=== PATIENT | male | born 1965 | race Caucasian/White ===

== ENCOUNTER 2023-11-23 11:44 | Inpatient (IN) | payer BC, SELFPAY ==
[2023-11-19 19:20] VITALS: BP 145/90; BP 148/89
--- NOTE | 2023-11-19 19:55 | ED.GENMED ---
History of Present Illness
General
Chief Complaint: Back Pain
Source: patient
Time Seen by Provider: 11/19/23 19:56
History of Present Illness
History of Present Illness:
58-year-old male presents to the emergency room complaining of pain in his back. Patient has chronic back pain. He has been sleeping in a chair for the past 2 years due to back pain. Over the past couple weeks the pain seems to be higher and is
now bothering him in the lower thoracic portion of his back. No shortness of breath. Pain is worse with movement and by exhaling. He denies specific abdominal pain. He has no weakness numbness or tingling in his legs. Patient was evaluated by
his primary care provider who was concerned that he may be having complications from his known AAA. Therefore he was sent to the emergency room for further evaluation.
Past History
Past History
ED Past Medical History: CAD, HTN, Hypercholesterolemia and Other (AAA)
ED Past Surgical History: Cardiac (CABG 2006)
Social History
Tobacco: Former smoker
Alcohol: None
Drug: None
Personal:
Living: with family
Employment: Employed
Family History
Family History: Early CAD
Phy Exam
Physical Exam
Physical Exam:
General: Awake, Alert, Oriented X3. No acute distress.
Vitals: unremarkable
Head: Atraumatic
Eyes: Pupils equal, EOMI
Throat: Airway intact, no exudates
Neck: Trachea midline
Lungs: Clear and equal b/l
Heart: Regular rate, no murmurs
Abd: Soft, Nontender, No pulsatile mass
Neuro: Nonfocal
Skin: Warm, dry, no rash
Extremities: pulses equal b/l, no edema
Course
Orders/Labs/Results
Orders:
Orders
11/19/23 19:54
CT Abd/pelvis W Iv Cont Urgent
Comment:
Reason For Exam: back pain, hx of AAA
11/19/23 20:04
Complete Blood Count/With Diff Urgent
Comprehensive Metabolic Panel Urgent
Lipase Urgent
Abnormal Lab Results
11/19/23
20:04
MCH 31.6 H pg
(27.0-31.0)
Absolute Monos (auto) 0.8 H 10^3/uL
(0.1-0.6)
Monocytes % 11.0 H %
(1.7-9.3)
11/19/23 20:04
11/19/23 20:04
Vital Signs
Initial and Last Documented VS:
Initial Vital Signs
Temp Pulse Resp BP Pulse Ox
99.1 F 69 18 148/89 95
11/19/23 19:20 11/19/23 19:20 11/19/23 19:20 11/19/23 19:20 11/19/23 19:20
Last Documented Vital Signs
Temp Pulse Resp BP Pulse Ox
99.1 F 66 19 139/85 94
11/19/23 19:20 11/19/23 22:30 11/19/23 22:30 11/19/23 22:00 11/19/23 22:30
MDM/Problems Addressed
Differential Diagnosis Includes:
Musculoskeletal pain, expanding AAA, kidney stone
MDM/Problems Addressed:
Patient presents with lower thoracic back pain that is getting worse. CT scan shows significant expansion of infrarenal abdominal aortic aneurysm. Discussed with vascular surgery who recommends patient be hospitalized for workup and potential
repair this admission.
*Radiology
Radiology exam reviewed: radiology read reviewed
*Pulse Oximetry
Patient hypoxic: no
*Critical Care Note
Total Time (30-74mins, 75-104mins- exclusive of procedures): Not Applicable
ED Attending Note
-
Portions of this chart may have been created with voice recognition software.� Occasional wrong word or��sound alike� substitutions may have occurred due to the inherent limitations of voice recognition software.
Discharge Plan
Departure
Patient Disposition: Admit
Date of Disposition: 11/19/23
Time of Disposition: 22:57
Admit to: IMU
Presentation/result/management discussed w/ accepting MD/DO: Hospitalist
Condition: Fair
Discharge Problem:
Abdominal aortic aneurysm
Prescriptions:
No Action
atenolol 25 MG tablet
50 mg PO DAILY
pravastatin 80 MG tablet
80 mg PO DAILY
diltiazem HCl 120 MG capsule,extended release 24hr
120 mg PO DAILY
isosorbide mononitrate 30 MG tablet extended release 24 hr
30 mg PO DAILY Qty: 30 5RF
prochlorperazine maleate 10 mg Capsule, Extended Release
10 mg PO DAILY PRN (Reason: Headache)
nitroglycerin 0.3 mg Tablet, Sublingual
0.3 mg SUBLINGUAL Q5-15M PRN (Reason: chest pressure)
topiramate 25 mg Tablet
25 mg PO DAILY
clopidogrel [Plavix] 75 mg Tablet
75 mg PO DAILY
Referrals:
Julius Sotelo MD [Family Provider] -
Interventions
Interventions:
*Risk Screen - Suicide Last Done: 11/19/23 19:16
*General Assessment Last Done: 11/19/23 19:16
*Neglect/Abuse Screening Last Done: 11/19/23 19:16
*ED COVID-19 Vaccine History Last Done: 11/19/23 19:16
ED-Musculoskeletal Assessment Last Done: 11/19/23 20:15
Discharge Date and Time
Print Language: FAROESE
[2023-11-19 20:06] VITALS: BP 133/82
[2023-11-19 20:10] LABS: % Basophils 0.3 % (0-2); % Eosinophils 1.9 % (0-6); % Immature Granulocytes 0.4 % (0-0.5); % Lymphocytes 25.1 % (20.5-51.1); % Neutrophils 61.3 % (42.2-75.2); Absolute Eosinophils 0.1 10^3/uL (0-0.7); Absolute Lymphocytes 1.8 10^3/uL (1.2-3.4); Absolute Monocytes 0.8 10^3/uL (0.1-0.6); Absolute Neutrophils 4.4 10^3/uL (1.4-6.5); Hematocrit 41.5 % (39.0-52.0); Hemoglobin 14.9 g/dL (13.0-18.0); Mean Corp Hgb Conc. 35.9 g/dL (33.0-37.0); Mean Corpuscular Hgb 31.6 pg (27.0-31.0); Mean Corpuscular Volume 88.1 fL (80.0-94.0); Mean Platelet Volume 9.6 fL (7.4-10.4); Nucleated Red Blood Cells % 0 % (-); Platelet Count 150 10^3/uL (130-400); Red Blood Cell Count 4.71 10^6/uL (4.70-6.10); White Blood Cell Count 7.3 10^3/uL (4.8-10.8)
[2023-11-19 20:37] LABS: ALT (SGPT) 23 U/L (0-50); AST (SGOT) 31 U/L (17-59); Albumin 4.1 g/dl (3.5-5.0); Alkaline Phosphatase 78 U/L (38-126); Blood Urea Nitrogen 18 mg/dl (9-20); Carbon Dioxide 26 mmol/L (22-30); Glucose 98 mg/dl (70-99); Lipase 222 U/L (23-300); Total Bilirubin 0.9 mg/dl (0.2-1.3); Total Protein 6.8 g/dl (6.3-8.2); eGFR > 60.00
[2023-11-19 20:41] LABS: Chloride 105 mmol/L (98-107); Potassium 4.5 mmol/L (3.5-5.1); Sodium 142 mmol/L (135-145)
[2023-11-19 21:00] VITALS: BP 136/89
[2023-11-19 22:00] VITALS: BP 139/85
[2023-11-19 23:00] VITALS: BP 146/94
--- NOTE | 2023-11-19 23:30 | HPS.HSE ---
Family Physician
-
Family Physician: Julius Sotelo
Chief Complaint
-
Worsening mid back pain
History of Present Illness
This is a 58-year-old male with past medical history significant for CAD, CVA, hypertension, and known AAA who presents to the emergency department with chronic back pain that is worsening over the last 2 months.
Patient reports chronic back pain for several years requiring multiple steroid injections in the past. He reports that that back pain is in the lumbosacral area and associated with flexion of the spine as well as radicular symptoms down the legs.
However over the last 2 months he has noticed the pain is more superior in the thoracic region and is covering a broader area associated with a achy sensation that sometimes radiates to the left flank. He denies intra-abdominal symptom such as
nausea or vomiting. He denies constipation. He denies any urinary symptoms including hematuria, dysuria incontinence or frequency. He reports that twisting motion of the spine makes the pain worse. He also reports chronic back pain with spasms
which is worse when he lays down. He denies any numbness tingling or weakness.
Patient reports that in the past he has had headaches that were associated with subsequent CVA. He reports occasional headache now. He was seen by his PMD who noted that with a headache back pain she was seen in the emergency department. He is
currently without any headaches.
In the emergency department the patient was afebrile over 94 pulse was in the patient saturation of 97% on room air abdomen pelvis which showed an enlarging AAA that was 4.7 cm, up from 3.4 cm in 2020, otherwise no acute intra-abdominal process.
CBC was complete within normal limits. Basic electrolytes BUN/creatinine also within normal limits. Lipase was normal. LFTs were normal.
Medical History
Past Medical History
Past Medical History: Reports CAD, CVA and HTN
Additional Past Medical History:
Chronic back pain
Past Surgical History: Reports None
Social History
Tobacco: Non-smoker
Alcohol: None
Drug: None
Personal:
Living: With Family
Employment: Employed
Family History
Family History: Not pertinent
Allergies / Home Medications
Allergies reflects when Allergies were last updated in [facility].
Home Medications with original date entered in [facility]
Allergy/Medication List:
Allergies
Allergy/AdvReac Type Severity Reaction Status Date / Time
No Known Allergies Allergy Verified 09/22/22 11:27
Home Medications
pravastatin 80 mg tablet 80 mg PO DAILY High cholesterol 08/20/13
diltiazem HCl 120 mg capsule,extended release 24 hr 120 mg PO DAILY Heart disease/condition 11/29/19
isosorbide mononitrate 30 mg tablet,extended release 24 hr 30 mg PO DAILY #30 tabs 09/12/20
clopidogrel 75 mg tablet (Plavix) 75 mg PO DAILY 09/22/22
nitroglycerin 0.3 mg sublingual tablet 0.3 mg sublingual [id number] PRN chest pressure 09/22/22
ashwagandha extract 500 mg capsule 1,000 mg PO DAILY 11/19/23
atenolol 50 mg tablet 50 mg PO DAILY 11/19/23
Review of Systems
-
History Source: Patient
Constitutional: Reports No Symptoms
EENT: Reports No Symptoms
Respiratory: Reports No Symptoms
Cardiac: Reports No Symptoms
Abdomen/GI: Reports No Symptoms
: Reports No Symptoms
Musculoskeletal: Reports Muscle Pain
Skin: Reports No Symptoms
Neurological: Reports No Symptoms
Endocrine: Reports No Symptoms
Hematologic/Lymphatic: Reports No Symptoms
Psych: Reports No Symptoms
Physical Exam
Vital Signs
Vital Signs
Temp Pulse Resp BP Pulse Ox
99.1 F 62 23 146/94 95
11/19/23 19:20 11/19/23 23:15 11/19/23 23:15 11/19/23 23:00 11/19/23 23:15
Physical Exam
General: Well Developed, Well Nourished, No Apparent Distress and Comfortable
HEENT: NormoCephalic, Anicteric, Moist mucous membranes and Atraumatic
Respiratory: Clear
Cardiac: S1/S2 and Regular Rhythm
GI: Soft, Non Tender, Non Distended and Normal Bowel Sounds
Rectal: Deferred by Provider
Genito-urinary: Deferred by me
Musculoskeletal: No Clubbing, No Cyanosis and No Edema
Skin: Warm
Neuro: AO x 3
Hematologic/Lymphatic: No Lymphadenopathy
Psych: Calm
Laboratory Results
-
11/19/23 20:04
11/19/23 20:04
Laboratory Results
Total Bilirubin 0.9 mg/dl (0.2-1.3) 11/19/23 20:04
AST 31 U/L (17-59) 11/19/23 20:04
ALT 23 U/L (0-50) 11/19/23 20:04
Alkaline Phosphatase 78 U/L (38-126) 11/19/23 20:04
Lipase 222 U/L (23-300) 11/19/23 20:04
Data Reviewed
-
CT Scan: Report Reviewed by me
Lab Data: Labs Reviewed by me
Old Records: Reviewed
Impression/Plan
-
IMPRESSION:
PLAN:
Triple AAA - Patient with enlarging AAA 3.4 cm to 4.7 cm since 2020 an average of 0.21 / 6 months but unclear the actual trajectory. There is no evidence of rupture or compression. BP is stable. Pain is however different from his usual back pain.
Vascular surgery notified and wants to evaluate patient in am.
- admit to telemetry
- npo
- hold plavix
- continue statin, imdur and atenolol for now.
- analgesics
Chronic BP - Patient with pain associated with spasms in a chronic manner.
- toradol once
- flexeril prn
- benadryl once
CVA/cad -
- holding plavix continue aspirin
- continue imdur, atenolol and dilt
DVT PPX - lovenox sq
Code Status -Full Code
[2023-11-19] MEDS: FLEXERIL 10 MG PO (23:58)
[2023-11-19] MEDS: TORADOL 10 MG IV (23:58)
[2023-11-20] VITALS (8 sets, daily range): BP systolic 128–168; BP diastolic 71–100; BMI 39.9
--- NOTE | 2023-11-20 04:52 | PTCARENOTE ---
0041 patient admitted to 2119, placed on tele #20, admission assessment completed. pt Ox3, states pain in back is anywhere from a 3-09/15. pt denies need for any mediciations. Oriented to room and inst production control supervisor ANN-MARIE georges reviewed. pt verb.
understanding.
--- NOTE | 2023-11-20 08:00 | CON.VAS ---
Consultation
Consultation Request
Date/Time Consultation Performed: 11/20/2023 8am
Requesting Provider: Hospialist
Performing Provider: Sujata Umanzor for Nba Polanco MD
Reason for Consultation: AAA
Medical History
-
Chief Complaint: Back pain/ headache
History of Present Illness:
This is a 58-year-old male with history of abdominal aortic aneurysm, stroke, hypertension, CAD, and migraine known to be smaller aneurysm followed. He presents to the ER yesterday reporting roughly 2 months of ongoing upper musculoskeletal
described back pain with accompanying intermittent severe headache. Patient notes that he has chronic lower back pain, and this upper back pain located around bilateral shoulder blades differs from previous pain. However, what was most concerning
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 'He endorses a prior history of strokes, and with his past strokes he experienced severe headaches which caused alarm for him
prompting ED evaluation. CT scan imaging of the abdomen last night in the emergency room demonstrated growth of his abdominal aortic aneurysm. Patient notes pain in his back which he points to the mid to lower thoracic back at the inferior margin
of the scapula as and radiating around somewhat to the right side he thinks. It is a constant pain. However certain things seem to make it worse. Not severe, more dull achy. He additionally endorses a strong family history of coronary artery
disease with majority of men dying in their early 50s to 60s from heart attacks. He is not aware of a family history of AAA or rupturing AAA as cause of .
Past Medical History
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
Past Surgical History: Cardiac (cardiac catheterization, CABG x3) and Urological ( lithotripsy)
Social History
Tobacco: Former Smoker (Quit 27 years ago)
Personal:
Living: With Family
Employment: Employed
Family History
Family History: Early CAD
Allergies / Home Medications
Allergy/AdvReac Type Severity Reaction Status Date / Time
No Known Allergies Allergy Verified 09/22/22 11:27
�Medication �Instructions �Recorded �Confirmed �Type
pravastatin 80 mg tablet 80 mg PO DAILY High cholesterol 08/20/13 11/19/23 History
diltiazem HCl 120 mg 120 mg PO DAILY Heart 11/29/19 11/19/23 History
capsule,extended release 24 hr disease/condition
isosorbide mononitrate 30 mg 30 mg PO DAILY #30 tabs 09/12/20 11/19/23 Rx
tablet,extended release 24 hr
clopidogrel 75 mg tablet (Plavix) 75 mg PO DAILY Blood Clot 09/22/22 11/19/23 History
Prevention/Tx
nitroglycerin 0.3 mg sublingual 0.3 mg sublingual [id number] PRN 09/22/22 11/19/23 History
tablet chest pressure
ashwagandha extract 500 mg capsule 1,000 mg PO DAILY Supplement 11/19/23 11/19/23 History
atenolol 50 mg tablet 50 mg PO DAILY Blood Pressure 11/19/23 11/19/23 History
Review of Systems
-
History Source: Patient
Constitutional: Reports No Symptoms
EENT: Reports Other (headache)
Respiratory: Reports No Symptoms
Cardiac: Reports No Symptoms
Vascular: Denies Leg Pain / Claudication, Numbness or Tingling
Abdomen/GI: Reports No Symptoms
: Reports No Symptoms
Musculoskeletal: Reports Other (upper back pain)
Skin: Reports No Symptoms
Neurological: Reports Headache
Endocrine: Reports No Symptoms
Physical Exam
Vital Signs
Temp Pulse Resp BP Pulse Ox
98.3 F 56 19 128/83 96
11/20/23 11:45 11/20/23 11:45 11/20/23 11:45 11/20/23 11:45 11/20/23 11:45
Lab Results
11/19/23 20:04
11/19/23 20:04
Physical Exam
General: No Apparent Distress
HEENT: Normocephalic, Anicteric and Atraumatic
Respiratory: Non Labored Respirations
Cardiac: Negative JVD
GI: Soft, Non Distended and Other (to deep palpation can palpate the aortic pulsation and he does elicit some tenderness here)
Musculoskeletal: No Edema
Skin: Warm
Neuro: AO x 3
Pulses: Bilateral Femoral: +2, Bilateral Popliteal: +1, Bilateral Dorsalis Pedis: +2 and Right Dorsalis Pedis: +2
Assessment / Plan
-
Assessment: 58 year old male symptomatic infrarenal abdominal aortic aneurysm
Plan:
Recommend repair while inpatient [facility]
Preop cardiac clearance
Recommend neurology consult given reports of severe headaches, with a history of stroke
Will obtain CT angio of the chest/abdomen/pelvis for complete imaging and to rule out thoracic aortic aneurysm, will obtain this tomorrow given recent CAT scan with dye
Additionally will obtain arterial ultrasound of bilateral lower extremities to rule out popliteal artery aneurysm
Reviewed with on-call vascular surgeon
--- NOTE | 2023-11-20 09:03 | W.PN.UPDATE ---
Update Note
Progress Note Update
Seen and evaluated with BALDO Umanzor. Full consultation to follow. Briefly 58-year-old male with history of abdominal aortic aneurysm, known to be smaller aneurysm followed. Strong family history of coronary artery disease with early MIs/mortality's
in his family (males in his family especially). Patient personally also had CABG prior. Subsequently underwent coronary catheterization a few years ago and notes that it was a complex intervention that resulted in inability to stent and patient
had cardiac arrest as a complication. Now he presents with about a month of back pain. It progressed to the point where he has a constant headache now and in the past he has had headaches when he had strokes. This raise concern and he presented
to the emergency room yesterday. CT scan imaging of the abdomen last night in the emergency room demonstrated growth of his abdominal aortic aneurysm. Patient notes pain in his back which he points to the mid to lower thoracic back at the inferior
margin of the scapula as and radiating around somewhat to the right side he thinks. It is a constant pain. However certain things seem to make it worse. Not severe, more dull achy.
In addition to above cardiovascular risk factors, he does note a history of tobacco use a pack a day at most, but quit 20 years ago plus.
On exam/ He is awake and alert. Head is normocephalic and atraumatic. Eyes are anicteric. Neck is soft without jugular venous distention. Breathing is unlabored. Abdomen is soft, nondistended, mildly obese. To deep palpation I can palpate the
aortic pulsation and he does elicit some tenderness there. He does seem to indicate that that discomfort/tenderness also may be mimicking his back pain. Not severely tender. Lower extremity with 2+ femoral, popliteal, pedal pulses palpable
bilaterally. Popliteal pulses may be slightly full.
CT scan reviewed. He has somewhat of a bilobed abdominal aortic aneurysm with the more inferior lobe (larger lobe) measuring 4.6 cm in the transverse dimension and about 4.7 cm in the AP dimension. There is a moderate posterior to anterior
migration of the aorta in the infrarenal segment. There is however a suitable diameter neck infrarenally for sealing of the stent graft. He does have a mild right common iliac artery ectasia/aneurysm measuring 2 cm. His aorta has moderate mural
thrombus as does his common iliac on the right side. Note I compared to an dated 10/11/2020 CAT scan from which time the aorta demonstrates significant growth. On that scan the more proximal lobe was barely enlarged at about 2.5 cm. The distal
lobe that is currently grown measured at that time 3.0 cm in transverse dimension and 3.4 cm in AP dimension. Therefore significant growth noted.
Plan/ Symptomatic infrarenal abdominal aortic aneurysm. Discussed with patient recommendation that despite absolute size less than 5.5 cm, this has demonstrated significant growth, albeit over a 3-year period, but more concerning only he may be
symptomatic here. He has constant back pain. And when I push on the aortic aneurysm it elicits discomfort/tenderness and that may radiate to his back and duplicate his pain. Based on all this while there is a chance his back pain could be other
in nature, would favor repair of the aneurysm as he certainly could be symptomatic which would increase his risk of rupture. I discussed this all with him. I discussed with his who is at the bedside as well. I had a very extensive discussion
with them, and naida diagrams to facilitate their understanding of aortic anatomy and mentations for repair. I extensively discussed with them the options for repair. I discussed open surgery that generally I favor an a younger patient especially
in the setting of slightly tortuous aortic anatomy. However, given his coronary history, and suitability for stent grafting I generally would favor in him endovascular repair. I did discuss both options at length. Discussed procedural anticipated
outcomes and recovery times, and discussed procedural risks for both comparatively. This was all extensively discussed. I discussed risks of endovascular repair including but not limited to (less than 1%), bleeding, infections,
contrast-induced nephropathy and/or inadvertent renal artery coverage resulting in dialysis dependent renal failure, bowel ischemia, pelvic and/or lower extremity ischemia, need for repeated reintervention's over the long-term or short-term,
endoleaks and their management. He and his understand all and wish to proceed with endovascular repair of abdominal aortic aneurysm. Given his significant cardiac history, I would recommend cardiology evaluation preoperatively. Given his
headaches and history of strokes, would recommend neurology preoperative evaluation. In addition, given his pain in the back that is slightly higher up and given his history, would recommend CT scan imaging of his chest as well to rule out aneurysm
there (would favor waiting 24 hours between contrast loads). And would recommend baseline popliteal artery ultrasounds to rule out popliteal artery aneurysms. Will get all this done and plan expeditious surgery ([facility]) on Thursday (11/23/2023, 3 days
from now). If any increasing pain will plan more urgent surgery.
[2023-11-20] MEDS: IMDUR (EXTENDED RELEASE) 30 MG PO (09:23)
[2023-11-20] MEDS: CARDIZEM CD 120 MG PO (09:23)
[2023-11-20] MEDS: TENORMIN 50 MG PO (09:23)
[2023-11-20] MEDS: PRAVACHOL 80 MG PO (09:24)
--- NOTE | 2023-11-20 10:58 | CON.NEURO4 ---
Addendum entered and electronically signed by Alex Heredia MD 11/20/23 14:35:
Studies reviewed.
I have personally examined the patient. I reviewed and agree with the UTILITY INSPECTOR's Note.
My addenda:
Awake, alert, interactive. No acute distress.
Speech intact.
Follows 2-step requests w/o difficulty. No tremor.
Extra-ocular movements grossly intact.
Facial movements full and symmetric. Hearing intact to normal conversational volume.
Normal UE movements bilaterally.
Neck: full ROM.
Chest: no dyspnea
Heart: no JVD
Ext: (-) Clubbing, (-) Cyanosis, (-) Edema
IMPRESSIONS/RECOMMENDATIONS:
Abrupt onset of return of daily persistent headache
Etiology may include worsening quality of sleep due to recurrent low back pain which in turn may be due to abdominal aortic aneurysm as well as hypertension
Would attempt to improve blood pressure control with the use of advancing doses of atenolol if possible. From standpoint of migraine, would prefer use of propranolol if at all possible to change
Would provide prochlorperazine for headache rescue when necessary
No clear indication patient would benefit from repeated neuroimaging as examination is nonfocal at this time. Would repeat if there is significant worsening in neurological function or persistent headaches despite best therapies
Continue pravastatin 80 mg daily due to intracranial stenosis
Continue clopidogrel due to prior stroke
D/W patient / family / nursing
All questions answered.
Will continue to follow peripherally.
Original Note:
Documented by User: Yasmeen Cohen NP 11/20/23 13:53
Consultation - Neurology 4
-
CONSULTING PHYSICIAN: Alex Heredia MD
REFERRING PHYSICIAN: Vascular Surgery/LATOSHA Meraz
DICTATED BY: LAOTSHA Garcia
DATE/TIME OF REQUEST: 11/20/23
DATE/TIME OF CONSULTATION: 11/20/23
Reason for Consultation: Intractable Headache
History of Present Illness:
This is a 58-year-old male who has presented to the hospital with report of intractable back pain. Patient is followed by our Neurology service as an outpatient. Initially he began following with our office for report of migraine headaches with
vision loss. CTA head/neck was subsequently obtained on 07/06/21 and demonstrated L cavernous ICA 50-69% stenosis, R ICA 25-50% stenosis, and severe R IDENTIFICATION TECHNICIAN P1 hypoplasia. MRI brain completed on 09/23/21 demonstrated a small subacute lacunar infarct in
the right centrum semiovale. Patient was continued on aspirin 81mg daily at that time. He then presented to [facility] in July 2021 with report of dysarthria, left hemiparesis, and visual changes. CTA head/neck demonstrated diminished R
MCA flow and he received IV TNK. MRI brain obtained during that hospitalization demonstrated small subacute infarct in the R MCA territory/R caudate. He was changed from aspirin to Plavix 75mg daily at that time. ILR was placed following that event
and recordings have thus far been unremarkable. Patient reports that his headache frequency improved following his second stroke until September 2023. He then reports sometime in September 2023 he started having severe thoracic back pain, different from his
chronic back pain. Shortly after he started having back pain he reports that neck and headaches began. The more severe his back pain, the more severe his headaches seemed to be. He was started on prochlorperazine PRN headache which he reports worked
well, but he ran out of pills and didn't call for a refill. He was also given a script for blood work but has yet to complete this. He has been on Nurtec in the past with no relief of headache, in addition to topiramate as a headache prevention
medication but he stopped taking this due to ongoing memory issues since his stroke. About one month ago, his headache became daily. They typically last for a few hours and are somewhat relieved by OTC Tylenol or Advil. His usual headache intensity
is 9/10. Today, his headache is a 4-5/10. He reports mild photo/phonophobia today, which is typical of his headaches. Occasionally he has nausea and cannot eat when he has a headache but denies vomiting. He denies any recent vision changes,
dizziness, swallowing difficulty, numbness, weakness, chest pain, palpitations, and shortness of breath. He reports ongoing severe short term memory difficulty and word finding difficulty. He has CADENCE and is compliant with cpap usage but he reports
severe difficultly sleeping since his back pain started due to discomfort. On arrival at , workup has revealed significant growth in his known AAA and neurology is consulted for headache evaluation given his history of stroke prior to EVAR on
11/23/23.
Past Medical History: R centrum semiovale and R MCA territory ischemic strokes, migraine with aura, HTN, HLD, AAA, CAD, renal calculi, cardiac cath complicated by cardiac arrest, L cavernous 50-69% ICA stenosis
Surgical History: lithotripsy, ILR, 3V CABG, cardiac cath
Family History: Mother- MS and severe headaches.
Social History: Former smoker.
Allergies: No known allergies.
Home Medications: See below.
Review of Symptoms:
Patient denies any fever, headache, chest pain, shortness of breath, GI or symptoms.
�Per the HPI.�All systems are reviewed negative except above.
Physical Exam:
The patient is afebrile, abdomen is nondistended, breathing is unlabored, skin is warm and dry, no edema.
NIH Stroke Scale:
I performed the NIH stroke scale on the patient on 11/20/23 at 1100. The patient scored 0 points on the NIH stroke scale assessment, which were assigned as follows: See below.
Neurologic Examination:
The patient is awake, alert and oriented x 3. He is able to follow commands and answer questions appropriately. There is no aphasia or dysarthria. On cranial nerve assessment, pupils are 3 mm bilateral, round and reactive to light and
accommodation. Visual valentino are full. Extraocular movements are intact. Facial sensations are intact and bilaterally symmetrical, there is no facial asymmetry. Hearing is intact bilaterally to normal conversation volume. Tongue palate and uvula are
midline. Sternocleidomastoid strengths are full bilaterally. Motor strengths are 5/5 bilateral upper and lower extremities on medical research [place] scale. There is no drift or involuntary movement noted. Deep tendon reflexes are 1+ bilateral
upper and lower extremities and Babinski is absent bilaterally. There was no extinction noted on double simultaneous stimulation. Coordination is intact by finger to nose bilaterally.
Lab Results: See below.
Neuro Imaging: None.
Differentials for the patient's presentation include:
1. Intractable migraine; etiology possibly hypertension, poor sleep.
2. Neurological exam is unremarkable, no exam findings supportive of new/recent stroke.
3. Hx of recurrent ischemic stroke.
4. Known L cavernous ICA 50-79% stenosis.
Patient has the following risk factors for their symptoms: hx stroke, hx migraines, poor sleep, hypertension
Recommendations:
-Continue single antiplatelet therapy as soon as possible per Vascular Surgery clearance for stroke prevention.
-Do not see a role for further neurological imaging at this time.
-Provide prochlorperazine 10mg IV x1 now for headache relief, can continue this q6hrs PRN headache.
-Goal normotension.
-DVT prophylaxis.
-Please contact our Neurology service with any further questions/concerns.
Discussed patient care with: Dr. Heredia, the patient, patient's
Vital Signs and Labs
-
Vital Signs and Labs:
Vital Signs
Temp Pulse Resp BP Pulse Ox
98.3 F 56 19 128/83 96
11/20/23 11:45 11/20/23 11:45 11/20/23 11:45 11/20/23 11:45 11/20/23 11:45
Lab Results
11/19/23 20:04
11/19/23 20:04
Sodium 142 mmol/L (135-145) 11/19/23 20:04
Potassium 4.5 mmol/L (3.5-5.1) 11/19/23 20:04
BUN 18 mg/dl (9-20) 11/19/23 20:04
Glucose 98 mg/dl (70-99) 11/19/23 20:04
Calcium 9.0 mg/dl (8.4-10.2) 11/19/23 20:04
Medications
-
Active Medications
Generic Name Dose Route Start Last Admin
Trade Name Freq PRN Reason Stop Dose Admin
Acetaminophen 650 mg 11/20/23 00:41
Acetaminophen 325 Mg Tablet PO 12/18/23 00:40
Q4HPRN PRN
mild pain/SANDOVAL/temp> 100.4F
Al Hydrox/Mg Hydrox/Simethicone 30 ml 11/20/23 00:41
Mag/Al/Simethicone Suspension 30 Ml Cup PO 12/18/23 00:40
Q6HPRN PRN
Heartburn
Atenolol 50 mg 11/20/23 08:00 11/20/23 09:23
Atenolol 50 Mg Tablet PO 12/18/23 07:59 50 mg
DAILY DENNIS Administration
Bisacodyl 10 mg 11/20/23 00:41
Bisacodyl 10 Mg Rectal Suppository RECTAL 12/18/23 00:40
[id number] PRN
constipation
Diltiazem HCl 120 mg 11/20/23 08:00 11/20/23 09:23
Diltiazem 120 Mg Extended Release (24 H) Capsule PO 12/18/23 07:59 120 mg
DAILY DENNIS Administration
Enoxaparin Sodium 40 mg 11/20/23 18:00
Enoxaparin Sodium 40 Mg/0.4 Ml Syringe SC 12/18/23 17:59
QPM DENNIS
Isosorbide Mononitrate 30 mg 11/20/23 08:00 11/20/23 09:23
Isosorbide Mononitrate 30 Mg Extended Release Tablet PO 12/18/23 07:59 30 mg
DAILY DENNIS Administration
Lidocaine 1 patch 11/20/23 11:15 11/20/23 12:13
Lidocaine 4% Topical Patch TOPICAL 12/18/23 11:14 1 patch
DAILY DENNIS Administration
Protocol
Patch Removal 0 patch 11/20/23 20:00
Remove Lidocaine Patch REMOVE 12/18/23 19:59
DAILY@2000 DENNIS
Polyethylene Glycol 17 grams 11/20/23 00:41
Polyethylene Glycol Powder 17 Grams Packet PO 12/18/23 00:40
DAILYPRN PRN
constipation
Pravastatin Sodium 80 mg 11/20/23 08:00 11/20/23 09:24
Pravastatin 40 Mg Tablet PO 12/18/23 07:59 80 mg
DAILY DENNIS Administration
Prochlorperazine Maleate 10 mg 11/20/23 11:15
Prochlorperazine 10 Mg Tablet PO 12/18/23 11:14
Q6HPRN PRN
headache
Senna/Docusate Sodium 1 tablet 11/20/23 00:41
Docusate W/Senna (Sahra-Colace) Tablet PO 12/18/23 00:40
BIDPRN PRN
constipation
Sodium Chloride 0 flush 11/19/23 23:00
Sodium Chloride 0.9% (Flush) Syringe IV 12/17/23 22:59
PER PROTOCOL DENNIS
Home Medications
�Medication �Instructions �Recorded
pravastatin 80 mg tablet 80 mg PO DAILY High cholesterol 08/20/13
diltiazem HCl 120 mg 120 mg PO DAILY Heart 11/29/19
capsule,extended release 24 hr disease/condition
isosorbide mononitrate 30 mg 30 mg PO DAILY #30 tabs 09/12/20
tablet,extended release 24 hr
clopidogrel 75 mg tablet (Plavix) 75 mg PO DAILY Blood Clot 09/22/22
Prevention/Tx
nitroglycerin 0.3 mg sublingual 0.3 mg sublingual [id number] PRN 09/22/22
tablet chest pressure
ashwagandha extract 500 mg capsule 1,000 mg PO DAILY Supplement 11/19/23
atenolol 50 mg tablet 50 mg PO DAILY Blood Pressure 11/19/23
NIH Stroke Score
Subsequent NIH Scale
Date of Subsequent NIH Scale: 11/20/23
Time of Subsequent NIH Scale: 11:00
NIH Stroke Score
Level of Consciousness: 0 - Alert
LOC Questions: 0-Answers both correctly
LOC Commands: 0-Performs both correctly
Best Horizontal Gaze: 0-Normal
Visual Valentino: 0=Normal, no visual loss
Facial Palsy: 0=Normal, symmetrical
Motor - Right Arm: 0=No drift 10 seconds
Motor - Left Arm: 0=No drift 10 seconds
Motor - Right Le-No drift 5 seconds
Motor - Left Le-No drift 5 seconds
Limb Ataxia: 0-Absent
Sensation: 0-Normal
Best Language: 0-No aphasia
Dysarthria: 0-Normal
Extinction and Inattention: 0-No abnormality
Total Score:: 0
Modified Mel[place] (mRS) Score
Modified [place] Scale (mRS): No symptoms
Score: 0

Documented by User: Alex Heredia MD 11/20/23 14:28
NIH Stroke Score
NIH Stroke Score
Total Score:: 0
Modified Janeen (mRS) Score
Score: 0
--- NOTE | 2023-11-20 12:04 | CON.CAR ---
Addendum entered and electronically signed by Feliciano Roy MD 11/20/23 15:42:
I saw and examined the patient.
The FAMILY DAY CARE WORKER's note was reviewed and I agree with the note.
Comment: 58 yo male with CAD s/p CABG x 3 2006, CVA 08/2022, obesity, HLD, HTN, migraines, infrarenal abdominal aortic aneurysm and strong family history of early CAD, who presents to the ER with c/o worsened back pain and headaches. CT abd/pelvis
revealed two sites of fusiform infrarenal abdominal aortic aneurysmal dilatation, measuring up to 4.7 cm (previously 3.4 cm on 10/11/2020) and fusiform aneurysmal dilatation of the bilateral common iliac arteries, increased from prior. He is without
any cp. 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 He has a rrr no m/r/g lungs cta no le edema. His ECG shows sb with primary av conduction delay with ns twave change no significant change from prior. He has elevated but
not prohibitive risk for the procedure. No futher testing needed. Will begin baby asa given his prior CVA and CAD. Continue BB.
We will follow peripherally, and return post op. Please call if repeat evaluation needed sooner.
Original Note:
Consultation
Consultation Request
Date/Time Consultation Requested: 11/20/23 10a
Date/Time Consultation Performed: 11/20/23 11:30a
Requesting Provider: LATOSHA Meraz
Performing Provider: LATOSHA Jarrell for Dr. Roy
Reason for Consultation: pre-op risk assessment
Medical History
-
Chief Complaint: back pain
History of Present Illness:
Mr. Paz is a 58 yo male with CAD s/p CABG x 3 2006, CVA 08/2022, obesity, HLD, HTN, migraines, infrarenal abdominal aortic aneurysm and strong family history of early CAD, who presents to the ER with c/o worsened back pain and headaches. CT
abd/pelvis revealed two sites of fusiform infrarenal abdominal aortic aneurysmal dilatation, measuring up to 4.7 cm (previously 3.4 cm on 10/11/2020) and fusiform aneurysmal dilatation of the bilateral common iliac arteries, increased from prior. He
is admitted to the hospitalist service with vascular surgery following for possible EVAR on Thursday11/23/23. We are consulted for pre-op risk assessment. He denies any cardiac complaints.
Past Medical History
Past Medical History: Other (as above)
Past Surgical History: Other (as above)
Social History
Tobacco: Former Smoker (quit 20 years ago)
Drug: None
Personal:
Living: With Family
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
Family History
Family History: Early CAD (father cad age 51)
Allergies / Home Medications
Allergy/AdvReac Type Severity Reaction Status Date / Time
No Known Allergies Allergy Verified 09/22/22 11:27
�Medication �Instructions �Recorded �Confirmed �Type
pravastatin 80 mg tablet 80 mg PO DAILY High cholesterol 08/20/13 11/19/23 History
diltiazem HCl 120 mg 120 mg PO DAILY Heart 11/29/19 11/19/23 History
capsule,extended release 24 hr disease/condition
isosorbide mononitrate 30 mg 30 mg PO DAILY #30 tabs 09/12/20 11/19/23 Rx
tablet,extended release 24 hr
clopidogrel 75 mg tablet (Plavix) 75 mg PO DAILY Blood Clot 09/22/22 11/19/23 History
Prevention/Tx
nitroglycerin 0.3 mg sublingual 0.3 mg sublingual [id number] PRN 09/22/22 11/19/23 History
tablet chest pressure
ashwagandha extract 500 mg capsule 1,000 mg PO DAILY Supplement 11/19/23 11/19/23 History
atenolol 50 mg tablet 50 mg PO DAILY Blood Pressure 11/19/23 11/19/23 History
Review of Systems
-
History Source: Patient
All other systems: Negative unless noted
Physical Exam
Vital Signs
Temp Pulse Resp BP Pulse Ox
98.3 F 56 19 128/83 96
11/20/23 11:45 11/20/23 11:45 11/20/23 11:45 11/20/23 11:45 11/20/23 11:45
Lab Results
11/19/23 20:04
11/19/23 20:04
Physical Exam
General: Well Developed, Well Nourished and No Apparent Distress
HEENT: Normocephalic, Anicteric and Moist Mucous Membranes
Respiratory: Clear and Non Labored Respirations
Cardiac: S1/S2 and Regular Rhythm
Breast: Deferred by me
GI: Soft, Non Tender, Non Distended and Normal Bowel Sounds
Rectal: Deferred by Provider
Genito-urinary: No Costovertebral Tender
Musculoskeletal: No Clubbing, No Cyanosis and No Edema
Skin: Warm and Dry
Neuro: AO x 3
Hematologic/Lymphatic: No Lymphadenopathy
Psych: Calm
Impression / Plan
-
Pre-op risk assessment - possible EVAR 11/23/23.
- he denies any cardiac complaints.
- he is able to perform > 4 METS without cardiac symptoms.
- no overt HF on exam, no angina.
- check EKG today.
- Plavix held, start ASA 81mg daily.
CAD - s/p CABG.
- denies angina.
- continue Pravastatin, Atenolol.
- Plavix held for surgery, add ASA 81mg daily.
HTN - stable on atenolol, diltiazem and Imdur, continue.
CVA - 08/2022.
- decreased flow to L MCA and received TNK with improved symptoms.
- has been on Plavix.
Headaches - worsened over the last 2 months.
- neurology following.
Back pain - acutely worse on chronic.
- maybe from aneurysm.
- per hosptialist.
Data Reviewed
-
EKG: Other (ordered EKG now)
CT Scan: Report Reviewed by me (abd/pelvis revealed two sites of fusiform infrarenal abdominal aortic aneurysmal dilatation, measuring up to 4.7 cm (previously 3.4 cm on 10/11/2020) and fusiform aneurysmal dilatation of the bilateral common iliac
arteries, increased from prior)
Medical Tests (Nuc Med, Echo etc): Report Reviewed by me (echo 10/2019: normal biventricular function, no significant valve disease) and Other (cath 09/2020: patent bypass grafts, unsuccessful attempt at PCI of first diagonal branch stenosis due to
guidewire dissection)
Labs: Labs Reviewed by me
Old Records: Reviewed
[2023-11-20] MEDS: COMPAZINE 10 MG IV (12:13)
[2023-11-20] MEDS: LIDOCAINE 4% PATCH 1 PATCH TOPICAL (12:13)
--- NOTE | 2023-11-20 12:21 | CM ---
Addendum entered by Ruth Larry RN 11/20/23 12:45:
Advance Directive forms provided to the patient.
Original Note:
Reviewed the chart notes and spoke with the patient and his family at the bedside. The patient is admitted under observational status. Obs letter reviewed and provided to the patient. The patient had no questions with regards to the letter.
The patient resides with his spouse, two daughters in a split level with no steps enter. The patient reports no DME/VN/SNF in the past. The patient confirmed his pharmacy of choice is [facility] [address] [place] [address]. CM continues to be
available to patient/family and is monitoring medical plan for needs at discharge.
Plan: Discharge plans will depend on the patient's progress.
--- NOTE | 2023-11-20 14:14 | W.PN.HOSP.TC ---
Today's Communication/Plan
-
CTChest with con
EVAR planned for thursday
Neuro and cards to clear
IV analgesics
Assessment / Plan
Assessment / Plan
NAD, resting comfortably in bed
Scleral anicteric
Moist mucous membranes
No JVD
CTA bilateral
Normal S1-S2 no murmurs
Soft nontender nondistended bowel sounds active
No peripheral pitting edema
Moves extremities spontaneously
AAOx3. No focal neuro defecits
Triple A
-Vasc surgery planning on OR on Thursday, if pain intensity increases will take soon
-CTChest orded
-Cards and Neuro to eval and clear
-Check BP in both UE
-EVAR - High risk surgery, cards to clear
-Provide analgesics
CAD s/p cabg/CVA
-Per vascular can continue both plavix and asa
HTN
-Continue antihypertensive
Anticipated Discharge: > 48 hours
Subjective/Interval History
-
Date of Service: November 20, 2023
seen and examined
still having back pain
feels like it could be a slipped thoracic disc as pain similar to uriel,bar slipped disc
still having intermittent headaches that he states is similar to when he had a cva
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
Objective Data
-
Vital Signs:
Vital Signs
Temp Pulse Resp BP Pulse Ox
98.3 F 56 19 128/83 96
11/20/23 11:45 11/20/23 11:45 11/20/23 11:45 11/20/23 11:45 11/20/23 11:45
[2023-11-20] MEDS: PLAVIX 75 MG PO (15:04)
[2023-11-20] MEDS: LOW STRENGTH ASPIRIN 81 MG PO (15:04)
[2023-11-20] MEDS: LOVENOX 40 MG SC (16:43)
[2023-11-21] VITALS (7 sets, daily range): BP systolic 121–146; BP diastolic 79–93
--- NOTE | 2023-11-21 08:02 | W.PN.VS ---
Today's Communication / Plan
-
as above
Assessment/Plan
-
-Will obtain CTA C/A/P today
-Plan EVAR Thursday, please make NPO after midnight Thursday
Subjective Data
-
Date of Service: November 21, 2023
No acute events. No longer has a headache. No change in abdominal or intrascapular discomfort
Objective Data
-
Vital Signs
Temp Pulse Resp BP Pulse Ox
97.6 F 66 16 143/89 95
11/21/23 03:21 11/21/23 03:21 11/21/23 03:21 11/21/23 03:21 11/21/23 03:21
Intake and Output
11/20/23 11/21/23 11/22/23
06:59 06:59 06:59
Intake Total 480 / 480
Balance 480 / 480
Intake:
Oral fluids 480 / 480
Other:
Number of approximated MODERATE 1
amounts of urine
Lab Results
11/19/23 20:04
11/19/23 20:04
Calcium 9.0 mg/dl (8.4-10.2) 11/19/23 20:04
Total Bilirubin 0.9 mg/dl (0.2-1.3) 11/19/23 20:04
AST 31 U/L (17-59) 11/19/23 20:04
ALT 23 U/L (0-50) 11/19/23 20:04
Alkaline Phosphatase 78 U/L (38-126) 11/19/23 20:04
Total Protein 6.8 g/dl (6.3-8.2) 11/19/23 20:04
Albumin 4.1 g/dl (3.5-5.0) 11/19/23 20:04
Physical Exam
-
NAD
abd soft, no tenderness
[2023-11-21] MEDS: LOW STRENGTH ASPIRIN 81 MG PO (08:49)
[2023-11-21] MEDS: CARDIZEM CD 120 MG PO (08:49)
[2023-11-21] MEDS: PRAVACHOL 80 MG PO (08:49)
[2023-11-21] MEDS: IMDUR (EXTENDED RELEASE) 30 MG PO (08:49)
[2023-11-21] MEDS: TENORMIN 50 MG PO (08:49)
[2023-11-21] MEDS: PLAVIX 75 MG PO (08:49)
[2023-11-21] MEDS: LIDOCAINE 4% PATCH 1 PATCH TOPICAL (08:49)
--- NOTE | 2023-11-21 09:15 | W.PN.NEURO.1 ---
Today's Communication / Plan
-
Normotension as a goal
Would provide prochlorperazine for headache rescue when necessary
No clear indication patient would benefit from repeated neuroimaging as examination is nonfocal at this time. Would repeat if there is significant worsening in neurological function or persistent headaches despite best therapies
Continue pravastatin 80 mg daily due to intracranial stenosis
Continue clopidogrel due to prior stroke
Neuro Assessment/Plan
Assessment
IMPRESSIONS/RECOMMENDATIONS:
Abrupt onset of return of daily persistent headache
Etiology may include worsening quality of sleep due to recurrent low back pain which in turn may be due to abdominal aortic aneurysm as well as hypertension
Plan
Would attempt to improve blood pressure control with the use of advancing doses of atenolol if possible. From standpoint of migraine, would prefer use of propranolol if at all possible to change
Would provide prochlorperazine for headache rescue when necessary
No clear indication patient would benefit from repeated neuroimaging as examination is nonfocal at this time. Would repeat if there is significant worsening in neurological function or persistent headaches despite best therapies
Continue pravastatin 80 mg daily due to intracranial stenosis
Continue clopidogrel due to prior stroke
Will continue to follow as an outpatient.
Subjective/Objective
Subjective Data
Date of Service: November 21, 2023
Objective Data
Vital Signs
Temp Pulse Resp BP Pulse Ox
36.8 C 66 16 141/86 97
11/21/23 07:10 11/21/23 07:10 11/21/23 07:10 11/21/23 07:10 11/21/23 07:10
Lab Results
11/19/23 20:04
11/19/23 20:04
Sodium 142 mmol/L (135-145) 11/19/23 20:04
Potassium 4.5 mmol/L (3.5-5.1) 11/19/23 20:04
BUN 18 mg/dl (9-20) 11/19/23 20:04
Glucose 98 mg/dl (70-99) 11/19/23 20:04
Calcium 9.0 mg/dl (8.4-10.2) 11/19/23 20:04
Patient Allergies
No Known Allergies Allergy (Verified 09/22/22 11:27)
Past History
Past History
ED Past Medical History: CAD, HTN, Hypercholesterolemia and Other (AAA)
ED Past Surgical History: Cardiac (CABG 2006)
Social History
Tobacco: Former smoker
Alcohol: None
Drug: None
Personal:
Living: with family
Employment: Employed
Family History
Family History: Early CAD
Medications
-
Medications:
Generic Name Dose Route Start Last Admin
Trade Name Freq PRN Reason Stop Dose Admin
Acetaminophen 650 mg 11/20/23 00:41
Acetaminophen 325 Mg Tablet PO 12/18/23 00:40
Q4HPRN PRN
mild pain/SANDOVAL/temp> 100.4F
Al Hydrox/Mg Hydrox/Simethicone 30 ml 11/20/23 00:41
Mag/Al/Simethicone Suspension 30 Ml Cup PO 12/18/23 00:40
Q6HPRN PRN
Heartburn
Aspirin 81 mg 11/20/23 14:00 11/21/23 08:49
Aspirin 81 Mg Chewable Tablet PO 12/18/23 13:59 81 mg
DAILY DENNIS Administration
Atenolol 50 mg 11/20/23 08:00 11/21/23 08:49
Atenolol 50 Mg Tablet PO 12/18/23 07:59 50 mg
DAILY DENNIS Administration
Bisacodyl 10 mg 11/20/23 00:41
Bisacodyl 10 Mg Rectal Suppository RECTAL 12/18/23 00:40
[id number] PRN
constipation
Chlorhexidine Gluconate 15 ml 11/23/23 06:00
Chlorhexidine Oral Rinse 0.12% 15 Ml Cup PO 11/23/23 06:01
ONCE ONE
Clopidogrel Bisulfate 75 mg 11/20/23 15:00 11/21/23 08:49
Clopidogrel 75 Mg Tablet PO 12/18/23 14:59 75 mg
DAILY DENNIS Administration
Diltiazem HCl 120 mg 11/20/23 08:00 11/21/23 08:49
Diltiazem 120 Mg Extended Release (24 H) Capsule PO 12/18/23 07:59 120 mg
DAILY DENNIS Administration
Enoxaparin Sodium 40 mg 11/20/23 18:00 11/20/23 16:43
Enoxaparin Sodium 40 Mg/0.4 Ml Syringe SC 12/18/23 17:59 40 mg
QPM DENNIS Administration
Cefazolin Sodium 2 grams in 10 mls @ 120 mls/hr 11/23/23 06:00
Ancef IV 11/23/23 06:04
PRE PROCEDURE ONE
Isosorbide Mononitrate 30 mg 11/20/23 08:00 11/21/23 08:49
Isosorbide Mononitrate 30 Mg Extended Release Tablet PO 12/18/23 07:59 30 mg
DAILY DENNIS Administration
Lidocaine 1 patch 11/20/23 11:15 11/21/23 08:49
Lidocaine 4% Topical Patch TOPICAL 12/18/23 11:14 1 patch
DAILY DENNIS Administration
Protocol
Mupirocin 0 applic 11/23/23 06:00
Mupirocin 2% (Ointment) 22 Gram Tube NASAL 11/23/23 06:01
ONCE ONE
Patch Removal 0 patch 11/20/23 20:00 11/20/23 20:53
Remove Lidocaine Patch REMOVE 12/18/23 19:59 1 patch
DAILY@2000 DENNIS Administration
Polyethylene Glycol 17 grams 11/20/23 00:41
Polyethylene Glycol Powder 17 Grams Packet PO 12/18/23 00:40
DAILYPRN PRN
constipation
Pravastatin Sodium 80 mg 11/20/23 08:00 11/21/23 08:49
Pravastatin 40 Mg Tablet PO 12/18/23 07:59 80 mg
DAILY DENNIS Administration
Prochlorperazine Maleate 10 mg 11/20/23 11:15
Prochlorperazine 10 Mg Tablet PO 12/18/23 11:14
Q6HPRN PRN
headache
Senna/Docusate Sodium 1 tablet 11/20/23 00:41
Docusate W/Senna (Sahra-Colace) Tablet PO 12/18/23 00:40
BIDPRN PRN
constipation
Sodium Chloride 0 flush 11/19/23 23:00
Sodium Chloride 0.9% (Flush) Syringe IV 12/17/23 22:59
PER PROTOCOL DENNIS
--- NOTE | 2023-11-21 11:33 | PTCARENOTE ---
Pt to be transferred to IVU. Report given to Gracie MARSHALL. No questions.
--- NOTE | 2023-11-21 12:19 | W.PN.HOSP.TC ---
Today's Communication/Plan
-
NPO on 11/22
For OR on 11/22, planned EVAR
Assessment / Plan
Assessment / Plan
NAD, resting comfortably in bed
Scleral anicteric
Moist mucous membranes
No JVD
CTA bilateral
Normal S1-S2 no murmurs
Soft nontender nondistended bowel sounds active
No peripheral pitting edema
Moves extremities spontaneously
AAOx3. No focal neuro defecits
Triple A
-Vasc surgery planning on OR on Thursday for EVAR, if pain intensity increases will take soon
-CTChest orded
-Cards and Neuro to eval and clear
-Check BP in both UE
-EVAR - High risk surgery, acceptable risk per cardiology
-Provide analgesics
CAD s/p cabg/CVA
-Per vascular can continue both plavix and asa
HTN
-Continue antihypertensive
Anticipated Discharge: > 48 hours
Subjective/Interval History
-
Date of Service: November 21, 2023
Seen and examined. No new complaint no acute overnight events.
States he does want to use prochlorperazine anymore due to how sleepy it made him, he did nto like the way it made him feel and that he was not himself.
States Lidocaine patch is helping th eback pain a little.
Has not used the morphine yet
Objective Data
-
Vital Signs:
Vital Signs
Temp Pulse Resp BP Pulse Ox
98.5 F 67 18 130/80 96
11/21/23 12:10 11/21/23 11:47 11/21/23 12:10 11/21/23 11:47 11/21/23 12:10
I&O
11/20/23 11/21/23 11/22/23
06:59 06:59 06:59
Intake Total 480 / 480
Balance 480 / 480
[2023-11-21] MEDS: TYLENOL 650 MG PO ×2 (12:21→16:23)
--- NOTE | 2023-11-21 12:35 | PTCARENOTE ---
Addendum entered by Bren Galeano RN 11/21/23 16:58:
The patient's headache increased to a 4/10 on scale 1 hr post Tylenol administration. I gave him 0.5mg of morphine as ordered. His headache was unchanged 1 hr post morphine administration. The patient agreed to take Tylenol again when it was next
due. Tylenol was given as ordered for SANDOVAL of 4/10 on scale.
Original Note:
Received the patient from [facility] in a wheelchair. The patient is aaox3, vss, NSR with a 1st degree AVB noted on the monitor. He ambulated to the bed without assist and without difficulty. He complained of a headache and rated it a 2/10 on scale.
Tylenol given as ordered.
[2023-11-21] MEDS: MORPHINE SULFATE 0.5 MG IV (14:49)
[2023-11-21] MEDS: FLUSH (NSS) 2 FLUSH IV (14:50)
[2023-11-21] MEDS: LOVENOX 40 MG SC (18:10)
[2023-11-21] MEDS: MAXALT MLT (ORALLY DISINTEGRATING) 10 MG PO (18:10)
--- NOTE | 2023-11-21 18:17 | PTCARENOTE ---
The patient's headache has not improved despite 2 doses of Tylenol with 0.5mg of morphine between each dose. His headache is now a 6/10 on scale. I sent a group [place] Text to the [facility] hospitalist and the neurologist release of information specialist asking if
anything else could be given as he wasn't due for more morphine yet. Dr. Heredia ordered a one time dose of Rizatriptan. Medication given as ordered.
[2023-11-21] MEDS: MORPHINE SULFATE 1 MG IV (20:12)
[2023-11-21] MEDS: BENADRYL 25 MG PO (22:27)
[2023-11-22] VITALS (8 sets, daily range): BP systolic 126–151; BP diastolic 76–93
--- NOTE | 2023-11-22 | PTCARENOTE ---
Pt. received at change of shift resting in bed. VSS, SR with first degree AVB on tele with HR in the 60s. Pt. with complaints of 7/10 headache for which Morphine was administered per order, see MAR. Pt reported that headache pain improved to a
2/10. Ambulating independently in room without difficulty. Plan of care discussed and pt. verbalizes understanding. Can make needs known. Call georges within reach.
--- NOTE | 2023-11-22 07:27 | W.PN.VS ---
Today's Communication / Plan
-
as above
Assessment/Plan
-
-CTA C/A/P reviewed, discussed with patient. No aortic pathology in chest. No signs of impending rupture in infrarenal AAA
-Plan EVAR Thursday, please make NPO after midnight Thursday night
Subjective Data
-
Date of Service: November 22, 2023
No acute events. Moved to IVU for closer monitor. No further abdominal pain
Objective Data
-
Vital Signs
Temp Pulse Resp BP Pulse Ox
98 F 61 16 129/91 94
11/22/23 03:16 11/22/23 03:16 11/22/23 03:16 11/22/23 03:16 11/22/23 03:16
Intake and Output
11/21/23 11/22/23 11/23/23
06:59 06:59 06:59
Intake Total 480 / 480
Balance 480 / 480
Intake:
Oral fluids 480 / 480
Other:
Number of approximated MODERATE 1
amounts of urine
Lab Results
11/19/23 20:04
11/19/23 20:04
Calcium 9.0 mg/dl (8.4-10.2) 11/19/23 20:04
Total Bilirubin 0.9 mg/dl (0.2-1.3) 11/19/23 20:04
AST 31 U/L (17-59) 11/19/23 20:04
ALT 23 U/L (0-50) 11/19/23 20:04
Alkaline Phosphatase 78 U/L (38-126) 11/19/23 20:04
Total Protein 6.8 g/dl (6.3-8.2) 11/19/23 20:04
Albumin 4.1 g/dl (3.5-5.0) 11/19/23 20:04
Physical Exam
-
NAD
Abd soft, non tender
[2023-11-22] MEDS: FLUSH (NSS) 1 FLUSH IV (08:03)
[2023-11-22] MEDS: PLAVIX 75 MG PO (08:03)
[2023-11-22] MEDS: LOW STRENGTH ASPIRIN 81 MG PO (08:03)
[2023-11-22] MEDS: IMDUR (EXTENDED RELEASE) 30 MG PO (08:03)
[2023-11-22] MEDS: CARDIZEM CD 120 MG PO (08:03)
[2023-11-22] MEDS: PRAVACHOL 80 MG PO (08:03)
[2023-11-22] MEDS: TENORMIN 50 MG PO (08:03)
--- NOTE | 2023-11-22 08:52 | PTCARENOTE ---
The patient's headache is a 1/10 on scale. He states that his back feels okay at the moment and would like to hold off on the lidocaine patch. His vitals remain stable. NSR is noted on the monitor.
--- NOTE | 2023-11-22 09:17 | W.PN.NEURO.1 ---
Today's Communication / Plan
-
Rizatriptan PRN headache
Amitriptyline 10 mg as preventative medication as outpatient
Neuro Assessment/Plan
Assessment
IMPRESSIONS/RECOMMENDATIONS:
Abrupt onset of return of daily persistent headache
Etiology may include worsening quality of sleep due to recurrent low back pain which in turn may be due to abdominal aortic aneurysm as well as hypertension. Does not clearly reach criteria for migraine without aura
Plan
Would attempt to improve blood pressure control with the use of advancing doses of atenolol if possible. From standpoint of migraine, would prefer use of propranolol if at all possible to change
Rizatriptan PRN headache
Amitriptyline 10 mg as preventative medication as outpatient
No clear indication patient would benefit from repeated neuroimaging as examination is nonfocal at this time. Would repeat if there is significant worsening in neurological function or persistent headaches despite best therapies
Continue pravastatin 80 mg daily due to intracranial stenosis
Continue clopidogrel due to prior stroke
Will continue to follow as an outpatient.
Subjective/Objective
Subjective Data
Date of Service: November 22, 2023
No headache currently
Objective Data
Vital Signs
Temp Pulse Resp BP Pulse Ox
36.9 C 66 20 149/84 94
11/22/23 07:54 11/22/23 07:56 11/22/23 07:54 11/22/23 07:56 11/22/23 07:54
Lab Results
11/19/23 20:04
11/19/23 20:04
Sodium 142 mmol/L (135-145) 11/19/23 20:04
Potassium 4.5 mmol/L (3.5-5.1) 11/19/23 20:04
BUN 18 mg/dl (9-20) 11/19/23 20:04
Glucose 98 mg/dl (70-99) 11/19/23 20:04
Calcium 9.0 mg/dl (8.4-10.2) 11/19/23 20:04
Patient Allergies
No Known Allergies Allergy (Verified 09/22/22 11:27)
Review of Systems
-
History Source: Patient
All other systems: Reviewed and negative
EENT: Negative Decreased Vision or Swallowing Difficulty
Cardiac: Negative Chest Pain
Musculoskeletal: Back Pain; Negative Neck Pain
Neuro: Headache; Negative Dizzy
Physical Exam
-
General: No Apparent Distress and Appears Stated Age
Eyes: Round OU, [place] Conjunctivae and No Ptosis
HEENT: Anicteric and Moist Mucous Membranes
Neck: Full Range of Motion
Respiratory: No Dyspnea
Cardiac: No JVD
GI: Non-distended
Skin: Unremarkable
Extremities: No Clubbing, No Cyanosis and No Edema
Psych: Intact Judgement/Insight
Extended Neurological Exam
Mood & Affect: Mood Unremarkable and Affect Unremarkable
Attention Span & Concentration: Awake, Alert and Interactive
Memory: Unremarkable
Tremor: Hand Tremor Absent and Head Tremor Absent
Speech: Quality Unremarkable and Quantity Unremarkable
Cranial Nerve II: Left Eye: Pupillary Size Unremarkable and Visual Valentino Grossly Intact
Cranial Nerve II: Right Eye: Pupillary Size Unremarkable and Visual Valentino Grossly Intact
Cranial Nerve VII: Facial Symmetry: Normal Facial Symmetry
Cranial Nerve VIII: Hearing: Unremarkable Hearing to Normal Conversational Volume
Cranial Nerve XII: Tongue Protusion: Midline
Muscle Strength, Overall: Full Throughout
Muscle Bulk & Tone: Bulk Unremarkable and Tone Unremarkable
Pronator Drift: No Drift in Upper Extremities
Deep Tendon Reflexes: Unremarkable Throughout
Cold Sensation: Unremarkable
Vibration Sensation: Unremarkable
Touch Sensation: Unremarkable
Coordination: Eobvlv-zdxa-bhtdes Testing Unremarkable
Babinski Sign: Absent Bilaterally
Gait & Station: Romberg Test Negative
Data Reviewed
-
Labs: Report Reviewed
Reviewed with: Patient
Old Records: Summarized
Past History
Past History
ED Past Medical History: CAD, HTN, Hypercholesterolemia and Other (AAA, intractable daily headache)
ED Past Surgical History: Cardiac (CABG 2006)
Social History
Tobacco: Former smoker
Alcohol: None
Drug: None
Personal:
Living: with family
Employment: Employed
Family History
Family History: Early CAD
Medications
-
Medications:
Generic Name Dose Route Start Last Admin
Trade Name Freq PRN Reason Stop Dose Admin
Acetaminophen 650 mg 11/20/23 00:41 11/21/23 16:23
Acetaminophen 325 Mg Tablet PO 12/18/23 00:40 650 mg
Q4HPRN PRN Administration
mild pain/SANDOVAL/temp> 100.4F
Al Hydrox/Mg Hydrox/Simethicone 30 ml 11/20/23 00:41
Mag/Al/Simethicone Suspension 30 Ml Cup PO 12/18/23 00:40
Q6HPRN PRN
Heartburn
Aspirin 81 mg 11/20/23 14:00 11/22/23 08:03
Aspirin 81 Mg Chewable Tablet PO 12/18/23 13:59 81 mg
DAILY DENNIS Administration
Atenolol 50 mg 11/20/23 08:00 11/22/23 08:03
Atenolol 50 Mg Tablet PO 12/18/23 07:59 50 mg
DAILY DENNIS Administration
Bisacodyl 10 mg 11/20/23 00:41
Bisacodyl 10 Mg Rectal Suppository RECTAL 12/18/23 00:40
[id number] PRN
constipation
Chlorhexidine Gluconate 15 ml 11/23/23 06:00
Chlorhexidine Oral Rinse 0.12% 15 Ml Cup PO 11/23/23 06:01
ONCE ONE
Clopidogrel Bisulfate 75 mg 11/20/23 15:00 11/22/23 08:03
Clopidogrel 75 Mg Tablet PO 12/18/23 14:59 75 mg
DAILY DENNIS Administration
Diltiazem HCl 120 mg 11/20/23 08:00 11/22/23 08:03
Diltiazem 120 Mg Extended Release (24 H) Capsule PO 12/18/23 07:59 120 mg
DAILY DENNIS Administration
Diphenhydramine HCl 25 mg 11/21/23 17:52 11/21/23 22:27
Diphenhydramine 25 Mg Capsule PO 12/19/23 17:51 25 mg
HSPRN PRN Administration
insomnia or headache
Enoxaparin Sodium 40 mg 11/20/23 18:00 11/21/23 18:10
Enoxaparin Sodium 40 Mg/0.4 Ml Syringe SC 12/18/23 17:59 40 mg
QPM DENNIS Administration
Cefazolin Sodium 2 grams in 10 mls @ 120 mls/hr 11/23/23 06:00
Ancef IV 11/23/23 06:04
PRE PROCEDURE ONE
Isosorbide Mononitrate 30 mg 11/20/23 08:00 11/22/23 08:03
Isosorbide Mononitrate 30 Mg Extended Release Tablet PO 12/18/23 07:59 30 mg
DAILY DENNIS Administration
Lidocaine 1 patch 11/20/23 11:15 11/21/23 08:49
Lidocaine 4% Topical Patch TOPICAL 12/18/23 11:14 1 patch
DAILY DENNIS Administration
Protocol
Morphine Sulfate 0.5 mg 11/21/23 12:22 11/21/23 14:49
Morphine 2 Mg/Ml Syringe IV 12/05/23 12:21 0.5 mg
Q4HPRN PRN Administration
mild-moderate pain
Morphine Sulfate 1 mg 11/21/23 12:22 11/21/23 20:12
Morphine 2 Mg/Ml Syringe IV 12/05/23 12:21 1 mg
Q4HPRN PRN Administration
severe pain
Mupirocin 0 applic 11/23/23 06:00
Mupirocin 2% (Ointment) 22 Gram Tube NASAL 11/23/23 06:01
ONCE ONE
Patch Removal 0 patch 11/20/23 20:00 11/21/23 20:15
Remove Lidocaine Patch REMOVE 12/18/23 19:59 1 patch
DAILY@2000 DENNIS Administration
Polyethylene Glycol 17 grams 11/20/23 00:41
Polyethylene Glycol Powder 17 Grams Packet PO 12/18/23 00:40
DAILYPRN PRN
constipation
Pravastatin Sodium 80 mg 11/20/23 08:00 11/22/23 08:03
Pravastatin 40 Mg Tablet PO 12/18/23 07:59 80 mg
DAILY DENNIS Administration
Senna/Docusate Sodium 1 tablet 11/20/23 00:41
Docusate W/Senna (Sahra-Colace) Tablet PO 12/18/23 00:40
BIDPRN PRN
constipation
Sodium Chloride 0 flush 11/19/23 23:00 11/22/23 08:03
Sodium Chloride 0.9% (Flush) Syringe IV 12/17/23 22:59 1 flush
PER PROTOCOL DENNIS Administration
--- NOTE | 2023-11-22 11:13 | W.PN.HOSP.TC ---
Today's Communication/Plan
-
NPO ON
EVAR tomorrow with Vascular
Assessment / Plan
Assessment / Plan
NAD, resting comfortably in bed
Scleral anicteric
Moist mucous membranes
No JVD
CTA bilateral
Normal S1-S2 no murmurs
Soft nontender nondistended bowel sounds active
No peripheral pitting edema
Moves extremities spontaneously
AAOx3. No focal neuro defecits
Triple A
-Vasc surgery planning on OR on Thursday for EVAR, if pain intensity increases will take soon
-CTChest orded
-Cards and Neuro to eval and clear
-Check BP in both UE
-EVAR - High risk surgery, acceptable risk per cardiology
-Provide analgesics
CAD s/p cabg/CVA
-Per vascular can continue both plavix and asa
HTN
-Continue antihypertensive.
Migraine
-Started on triptans. seems to be helping
Anticipated Discharge: > 48 hours
Subjective/Interval History
-
Date of Service: November 22, 2023
feeling better
tells me the morphine helped with the pain
had a migraine, spoke with neuro, started a sl triptan, in combo with the morphine pain went from 6 to 1
Objective Data
-
Vital Signs:
Vital Signs
Temp Pulse Resp BP Pulse Ox
98.5 F 70 20 151/93 96
11/22/23 10:55 11/22/23 10:58 11/22/23 10:55 11/22/23 10:58 11/22/23 10:55
I&O
11/21/23 11/22/23 11/23/23
06:59 06:59 06:59
Intake Total 480 / 480 360 / 360
Balance 480 / 480 360 / 360
--- NOTE | 2023-11-22 13:22 | PTCARENOTE ---
BP right arm 150/85
BP left arm 126/75
[2023-11-22] MEDS: LIDOCAINE 4% PATCH TOPICAL (13:23)
[2023-11-22] MEDS: LOVENOX 40 MG SC (18:06)
--- NOTE | 2023-11-22 20:14 | PTCARENOTE ---
Pt remains in SR with HR 60s-70s. VSS. Pt. does not endorse any complaints of pain at this time. Ambulating independently in room without difficulty. Plan of care discussed and pt verbalizes understanding of being NPO after midnight for scheduled
procedure in AM. Can make needs known. Call georges within reach.
[2023-11-23] VITALS (23 sets, daily range): BP systolic 112–165; BP diastolic 70–100
[2023-11-23 04:54] LABS: Hemoglobin 15.9 g/dL (13.0-18.0); Mean Corp Hgb Conc. 36.1 g/dL (33.0-37.0); Mean Corpuscular Hgb 31.3 pg (27.0-31.0); Mean Corpuscular Volume 86.6 fL (80.0-94.0); Mean Platelet Volume 9.9 fL (7.4-10.4); Platelet Count 152 10^3/uL (130-400); Red Blood Cell Count 5.08 10^6/uL (4.70-6.10); Red Cell Dist. Width 11.9 % (11.5-14.5); White Blood Cell Count 8.3 10^3/uL (4.8-10.8)
[2023-11-23 05:10] LABS: APTT 33.5 Sec (23.4-35.0)
[2023-11-23 05:14] LABS: Blood Urea Nitrogen 16 mg/dl (9-20); Carbon Dioxide 23 mmol/L (22-30); Chloride 106 mmol/L (98-107); Estimated Creatinine Clearance > 125 ml/min; Glucose 89 mg/dl (70-99); Potassium 4.6 mmol/L (3.5-5.1); Sodium 139 mmol/L (135-145); eGFR > 60.00
[2023-11-23] MEDS: BACTROBAN 2% OINTMENT 1 APPLIC NASAL (06:05)
[2023-11-23] MEDS: PERIDEX 0.12% ORAL RINSE 15 ML PO (06:05)
--- NOTE | 2023-11-23 06:52 | W.SUR.PREOP ---
Pre-Operative Surgical Note
-
I have examined this patient prior to the performance of the scheduled procedure.
The patient's condition is unchanged from the time of the current History and
Physical and the patient is able to undergo the scheduled procedure.
I again reviewed procedure with patient and his . They understand all and wish to proceed.
--- NOTE | 2023-11-23 06:56 | PTCARENOTE ---
laborer driver nurse called for report on pt. Per solder making laborer, pt requires two IV sites for procedure. New 20G IV placed in LAC. Peridex oral rinse and Bactroban nasal ointment given per orders. Pts. took all pt. belongings. Pt. sent with solder making laborer
nurse with dose of IV abx.
[2023-11-23] MEDS: NSS 500 IV (07:22)
--- NOTE | 2023-11-23 09:40 | W.SUR.POST ---
Surgical Immediate Post Op
Note
Pre Op Diagnosis: AAA
Post Op Diagnosis: AAA
Procedure Performed: EVAR
Primary Surgeon: Nba Polanco MD
electrician's assistant: LATOSHA Cortez
Anesthesia: GETA
Estimated Blood Loss: 50 mL
Fluids: See anesthesia flowsheet
Drains/Shunts: N/A
Specimens/Cultures: N/A
Doppler/Duplex/Angio (Y/N): Y
Complications: None
Operative Findings: Successful repair of AAA, with bilateral DP pulses palpable postoperatively
--- NOTE | 2023-11-23 10:00 | W.PN.CD ---
Addendum entered and electronically signed by Erasto Dueñas MD 11/23/23 11:22:
58 yo male with PMH of CAD/CABG, CVA, infrarenal AAA. He underwent EVAR this AM. He had no cardiac complaints in the PACU. Exam with RRR, no murmurs, no edema. Cr 0.7.
Post op care per vascular surgery. Cont ASA, Plavix.
Original Note:
Today's Communication / Plan
-
Close post-op monitoring and care. Follow telemetry and BP's. Continue BB.
Impression / Plan
-
Assessment/Plan: 58 y/o male with CAD s/p CABG x 3 2006, CVA 08/2022, obesity, HLD, HTN, migraines, infrarenal abdominal aortic aneurysm and strong family history of early CAD, who presented to the ER with c/o worsened back pain and headaches. CT
abd/pelvis revealed two sites of fusiform infrarenal abdominal aortic aneurysmal dilatation, measuring up to 4.7 cm (previously 3.4 cm on 10/11/2020) and fusiform aneurysmal dilatation of the bilateral common iliac arteries, increased from prior.
AAA s/p EVAR 11/23/23, Dr. Polanco:
-VSS post-op
-post-op management per vascular surgery
CAD - s/p CABG:
- denies chest pain
- continue Pravastatin, Atenolol
- on Plavix as OP. Currently also on aspirin.
HTN:
-monitor post-op
CVA - 08/2022:
-on Plavix, statin
Headaches:
-neuro following
Physical Exam
Vital Signs/Labs
Vital Signs
Temp Pulse Resp BP Pulse Ox
97.2 F 88 14 153/90 99
11/23/23 07:04 11/23/23 09:47 11/23/23 09:47 11/23/23 09:47 11/23/23 09:47
PT 14.0 Sec (11.4-14.6) 11/23/23 04:22
INR 1.10 11/23/23 04:22
APTT 33.5 Sec (23.4-35.0) 11/23/23 04:22
Physical Exam
Constitutional: No acute distress
EENT: Anicteric
Cardiovascular: Rhythm & rate is regular
Respiratory: Respiratory effort normal and Lungs clear to auscul.
Neuro/Psych: AO x 3
Data Reviewed
-
Date of Service: November 23, 2023
EKG: Other (SR on telemetry)
--- NOTE | 2023-11-23 10:04 | OR.RPT ---
Operative Report
Operative Report
PROCEDURE DATE: 11/23/2023
Preoperative diagnosis: Enlarging, symptomatic infrarenal abdominal aortic aneurysm.
Postoperative diagnosis: Same
Procedure:
1. Endovascular repair of abdominal aortic aneurysm with bifurcated modular endoprosthesis ([place] C3 Conformable Excluder) with bilateral iliac limb extension.
2. Percutaneous bilateral common femoral artery closure.
3. Supervision and interpretation.
Surgeon: Collin
Patient Consumer Marketer: Sreekanth, required for all aspects of procedure including assistance with traction/countertraction and device delivery over sheath etc.
Complications: None
Anesthesia: General
Indications for procedure:
Enlarging abdominal aortic aneurysm, now symptomatic with discomfort/tenderness. Risk/benefits/alternatives of endovascular pair all fully discussed. Patient understood all wish to proceed.
Description of procedure:
Patient was identified brought to the operating room placed on the table in supine position. After the adequate administration of anesthesia and perioperative antibiotics he was prepped and draped in the standard surgical fashion. A standard
preoperative timeout was undertaken and everybody was in agreement the plan. Bilateral common femoral artery access was obtained under direct duplex ultrasound guidance. 6 [place] sheaths were placed over 0.035 inch wires. Next, small 1 cm
incisions were made around the sheath entry sites bilaterally. Blunt dissection was undertaken with hemostats to facilitate percutaneous suture delivery. Next, using the ProGlide suture system, percutaneous sutures were deployed at the 10:00 and 2
o'clock position bilaterally in the standard fashion. Suture strands were tagged outside the skin. On the left side one of the percutaneous delivery devices failed, and therefore we had to exchange for a second 1 which seemed to work fine. We
exchanged for 11 [place] sheaths bilaterally. We exchanged for amplatz wires into the supraceliac aorta from bilateral access sites. On the left side I exchanged out for a pigtail catheter which was positioned in the juxtarenal aorta. The patient
was given an appropriate dose of heparin (total of 9000 units intravenously). Next I exchanged my right-sided 11 [place] sheath for a [place] dry seal 16 [place] sheath which was advanced into the aorta under fluoroscopy.
Prior to bringing my device into the field, I performed power injection aortography. I was able to note the accessory left renal artery that filled relatively lightly in terms of contrast opacification. I could not see the IRAIS opacify (appeared to
be a slightly larger vessel on CT angiogram). The left renal accessory artery was small and as noted filled relatively lightly, and on CT there was a shelf of plaque at the origin. Therefore I did not feel it necessary to try to embolize. I was
hoping to try to embolize the IRAIS, but I did not see it fill well and therefore I felt that likely would not require preoperative embolization (and may be very challenging based on its position within the aneurysm sac).
I then brought the main body device into place. It was oriented under fluoroscopy in the field before loading it over the wire and inserting it through the right-sided sheath. I had oriented such that the limbs would remain in standard orientation
(not crossed) but contralateral gate would open somewhat anteriorly. The main body was a [place] C3 Conformable Excluder 26 mm x 14 mm x 12 cm length ([id number]). Note, initial aortography had been performed and steep cranial positioning due to the
posterior to anterior angulation of the proximal neck. The positioning of the bilateral renal arteries had been marked on the screen following my aortogram (and the table/gantry was locked). Next, the right sided dry seal sheath was withdrawn to
the level of the contralateral gate. I confirmed positioning of the contralateral gate and then began deployment of the stent graft just inferior to the bilateral renal arteries. I was very happy with its positioning and deployed it to the level
of the contralateral gate which was fully deployed now. I was very satisfied. After performing another aortogram through the pigtail to confirm excellent positioning of the proximal extent of the stent graft with good filling of both renal
arteries, I then exchanged my pigtail catheter over a floppy Glidewire, and having pulled it down below the contralateral gate I then used a KMP catheter and the floppy angled hydrophilic Glidewire to cannulate the contralateral gate. Once I did so
I was then able to advance my pigtail catheter through the gate, spinning the catheter to confirm that I was in the true lumen of the graft.
At this point I then placed an Amplatz wire through the left sided pigtail catheter and performed retrograde pelvic angiogram. This was done in the appropriate obliquity as well. The iliac bifurcation was marked on the screen. I then used a
contralateral limb with a 23 mm x 14cm contralateral iliac limb ([id number]) based on our measurement at the marked location of the iliac bifurcation (accounting for maximum overlap). This was positioned nicely with suitable overlap in the
contralateral gate (3 cm) and I noted that the stent graft once in place, was going to be short (well short) of the iliac bifurcation, but there would be adequate seal. However, given CT scan imaging finding of a not completely normal left iliac
artery (ectatic with mural thrombus) I felt that I would like to extend that even further such that the stent graft coverage would extend to the bifurcation precisely. Therefore, I now completed deployment of the initial contralateral iliac limb
(with plans to extended subsequently). Prior to completing deployment, I did release the proximal constraint on the main body of the device. Once I completed this, I withdrew my sheath on the right side slightly further back in the pelvis. Pelvic
angiogram demonstrated the iliac bifurcation which i marked on the screen, and then deployed the remainder of the ipsilateral iliac limb. I then withdrew the delivery device. Then, exchanged for a 23 mm x 12 cm iliac limb extension ([id number]).
The iliac bifurcation had been marked on the screen. This was deployed with sufficient overlap and just short of the iliac bifurcation. Was very happy with this deployment. I now turned my gantry back to the COLEY obliquity and performed another
retrograde angiogram and marked the left iliac bifurcation again on the screen. I now extended my left iliac limb with a second overlapping 23 mm x 12 cm iliac limb extension ([id number]). This I deployed precisely onto the iliac bifurcation or
just short of it. I was very happy with the positioning.
Next a molding balloon was used to molded the proximal and distal seal zones as well as the overlap sites. Power injection completion aortography was now performed that demonstrated excellent positioning of the graft. No evidence of any type I
endoleak was noted. On delayed imaging there appeared to be very minimal contrast slowly filling into the right side of the aneurysm sac (slow type II endoleak likely). However, as noted there was no evidence of type I or type III endoleak's.
Therefore I was satisfied. Next, I sequentially removed the sheath while cinching down the percutaneous sutures. This was initially done on the right side and then on the left. Once hemostasis was noted the wire was then withdrawn, the knot was
tightened with a knot pusher. Hemostasis was confirmed. The knot was then locked and the suture strands trimmed. This was done as noted on the right initially and then on the left. Hemostasis was fully achieved bilateral groins with good femoral
pulses bilaterally. Protamine was given to reverse the heparin. The small skin incisions were then closed with 4-0 Monocryl subcuticular stitch and Dermabond was applied. Patient tolerated procedure well. He had palpable DP pulses bilaterally
upon completion.
[2023-11-23 10:10] LABS: Hemoglobin 16.4 g/dL (13.0-18.0); Mean Corp Hgb Conc. 35.7 g/dL (33.0-37.0); Mean Corpuscular Hgb 31.4 pg (27.0-31.0); Mean Corpuscular Volume 88.1 fL (80.0-94.0); Mean Platelet Volume 9.7 fL (7.4-10.4); Platelet Count 142 10^3/uL (130-400); Red Blood Cell Count 5.22 10^6/uL (4.70-6.10); Red Cell Dist. Width 12.1 % (11.5-14.5); White Blood Cell Count 11.9 10^3/uL (4.8-10.8)
[2023-11-23 10:33] LABS: Blood Urea Nitrogen 13 mg/dl (9-20); Calcium 8.1 mg/dl (8.4-10.2); Carbon Dioxide 19 mmol/L (22-30); Chloride 107 mmol/L (98-107); Estimated Creatinine Clearance > 125 ml/min; Glucose 127 mg/dl (70-99); Potassium 5.1 mmol/L (3.5-5.1); Sodium 139 mmol/L (135-145); eGFR > 60.00
[2023-11-23] MEDS: DILAUDID 0.5 MG IV (10:37)
[2023-11-23] MEDS: NSS 1000 IV (11:46)
--- NOTE | 2023-11-23 11:57 | CON.INTV ---
Consultation
Consultation Request
Date/Time Consultation Requested: 11/23/2023- noon
Date/Time Consultation Performed: 11/23/2023- noon
Requesting Provider: Vascular surgery
Performing Provider: Dr. Young
Reason for Consultation: Postop critical care management
Medical History
-
Chief Complaint: PAD
History of Present Illness:
58-year-old male with a history of hypertension, CAD, CVA and known AAA presenting with chronic back pain which is worsened over the last 2 months and was evaluated by vascular surgery as well as neurology and underwent EVAR-leakage tester consulted
for postoperative critical care management 11/23/2023. Patient is seen postoperatively in the Surgical intensive care unit. Patient denies any shortness of breath, chest pain, chest congestion, productive cough, abdominal pain, nausea, vomiting,
new weakness or increased lower extremity swelling. He wants the Govea catheter out because of discomfort.
Past Medical History
Past Medical History: None (Hypertension. Hyperlipidemia. CAD-CABG times 05/2006. CVA 08/2022. Obesity. CADENCE. Migraines. Infrarenal AAA. Former smoker-quit 20 years ago)
Social History
Tobacco: Former Smoker ([id number] quit 20 years ago)
Drug: None
Personal:
Living: With Family
Occupational Exposures: No known asbestos exposure
Environmental Exposures: No known tuberculosis exposure
Family History
Family History: Early CAD (Father age 51)
Allergies / Home Medications
Allergies
Allergy/AdvReac Type Severity Reaction Status Date / Time
No Known Allergies Allergy Verified 09/22/22 11:27
Home Medications
�Medication �Instructions �Recorded �Confirmed �Last Taken �Type
pravastatin 80 mg tablet 80 mg PO DAILY High cholesterol 08/20/13 11/19/23 11/19/23 History
diltiazem HCl 120 mg 120 mg PO DAILY Heart 11/29/19 11/19/23 11/19/23 History
capsule,extended release 24 hr disease/condition
isosorbide mononitrate 30 mg 30 mg PO DAILY #30 tabs 09/12/20 11/19/23 11/19/23 Rx
tablet,extended release 24 hr
clopidogrel 75 mg tablet (Plavix) 75 mg PO DAILY Blood Clot 09/22/22 11/19/23 11/19/23 History
Prevention/Tx
nitroglycerin 0.3 mg sublingual 0.3 mg sublingual [id number] PRN 09/22/22 11/19/23 Unknown History
tablet chest pressure
ashwagandha extract 500 mg capsule 1,000 mg PO DAILY Supplement 11/19/23 11/19/23 11/19/23 History
atenolol 50 mg tablet 50 mg PO DAILY Blood Pressure 11/19/23 11/19/23 11/19/23 History
Review of Systems
-
Unable to Obtain full review of systems at this time due to: Other (Per HPI)
Vitals / Labs / Diagnostic Testing
Vital Signs
Temp Pulse Resp BP Pulse Ox
97.7 F 80 8 141/88 94
11/23/23 11:00 11/23/23 11:15 11/23/23 11:00 11/23/23 11:15 11/23/23 11:15
Lab Data
11/23/23 10:00
11/23/23 10:00
Laboratory Results
11/23/23
04:22
PT 14.0
INR 1.10
APTT 33.5
Diagnostic Testing:
Physical Exam
-
HEENT: Other
Exam:
Well-nourished and well-developed in no apparent distress
HEENT-atraumatic, normocephalic
Neck-supple, no JVD, no bruit
Heart-regular rate and rhythm-no murmurs, rubs or gallops
Chest-clear to auscultation, no wheezes, crackles
Back-no tenderness
Abdomen-soft, nontender, nondistended, no hepatosplenomegaly
Extremities-no cyanosis, clubbing, edema and good peripheral pulses
Integument-intact, no rashes, lesions or ecchymosis
Neurology-alert and oriented, nonfocal motor and sensory exam
Assessment
-
58-year-old male with a history of hypertension, CAD, CVA and known AAA presenting with chronic back pain which is worsened over the last 2 months and was evaluated by vascular surgery as well as neurology and underwent EVAR-leakage tester consulted
for postoperative critical care management 11/23/2023.
AAA status post EVAR 11/23/2023-Dr. Polanco
Mild leukocytosis-WBC 11.9
Mild hyperglycemia
Conditions present prior to admission:
Hypertension.
Hyperlipidemia.
CAD-CABG times 05/2006.
CVA 08/2022.
Obesity.
CADENCE.
Migraines.
Infrarenal AAA.
Former smoker-quit 20 years ago
Plan
Postoperative surgical intensive care unit monitoring
Supplemental oxygen as needed
Incentive spirometry
Aspiration precautions
Neuro and vascular checks per protocol
Vascular surgery following-correspondence and operative notes reviewed
DVT prophylaxis
Early nutrition
Early mobilization
Outpatient sleep disorders [id number] with untreated sleep apnea was reviewed. Treatment options will be reviewed in the outpatient setting.
Above recommendations were reviewed with at the bedside
Critical care statement: A total of 45 minutes of critical care time was provided for this patient today. This includes management of unstable vital signs, evaluation of the patient at bedside, reviewing the patient's pertinent medical records
including radiographs, microbiology, laboratory evaluations, and discussion with primary team, consultants, pharmacy, nutrition, physical therapy, case management, charge nurse, critical care nursing, and respiratory therapy.
Diagnostic data:
Chest x-ray 09/12/2020-hyperaerated lungs without consolidation
CT chest 10/11/2020-no pulmonary embolism, no aortic dissection, cardiomegaly
CT head angiogram 07/06/2021-large amount of calcified atherosclerotic plaque in the cavernous and clinoid segments of both intracranial internal carotid arteries causing 70% max diameter stenosis on the left and 25-50% stenosis on the right,
CT chest abdomen and pelvis 11/21/2023-no thoracic aortic aneurysm or dissection, proximal infrarenal abdominal aortic aneurysm measuring 4.1 cm and distal abdominal aortic aneurysm measuring 4.6 cm, proximal right common iliac artery aneurysm
measuring 1.9 cm, mild fatty infiltration of the liver, mild diverticulosis
Cardiac catheterization 09/11/2020-systemic hypertension, mild anterolateral hypokinesis, EF 53%, severe [place] triple-vessel CAD with patent ROBINS-LAD, OMAR-RPDA, and LRA-OM 3 bypass grafts, unsuccessful attempt PCI of first diagonal branch stenosis
due to guidewire dissection all
HST 10/02/2022-SALAS-13.3, desaturation bertin 84%, 1.6% of time less than 90% saturation
Data Reviewed
-
EKG: Report reviewed by me
Radiology: Report reviewed by me
CT Scan: Report reviewed by me
Labs: Labs reviewed by me
Old Records: Reviewed
Critical Care Time (in minutes): 45
--- NOTE | 2023-11-23 12:41 | W.PN.HOSP.TC ---
Today's Communication/Plan
-
Continue current care
Assessment / Plan
Assessment / Plan
Gen-AAOx3, NAD
HEENT-NC, AT, anicteric, clear oral mm
Neck-supple
CV-reg, no M, +S1/S2
Lungs-clear B/L
Abd-soft, NT, ND
Ext-no edema
Musculoskeletal-no cyanosis, clubbing
Skin-warm and dry
Neuro-grossly non-focal
Psych-calm, cooperative
Infrarenal abdominal aortic aneurysm -underwent successful EVAR today. Currently n.p.o., resume diet when okay with surgical service. Govea catheter for 24 hours.
Progressive back pain -differential diagnosis includes musculoskeletal pain versus aneurysmal pain versus other causes. If pain persists postoperatively will need further evaluation as an outpatient. Discussed with patient and .
CAD/CABG -stable.
History of stroke
Hyperlipidemia -on pravastatin prior to admission.
Essential HTN
-Continue antihypertensive.
Migraine
-Started on triptans. seems to be helping
Morbid obesity due to excess calories
Full code
Anticipated Discharge: > 48 hours
Subjective/Interval History
-
Date of Service: November 23, 2023
Patient seen and examined. Just had surgery this morning on his aorta. Currently denies pain. No complaints other than irritation from Govea catheter.
Objective Data
-
Labs:
Laboratory Results
11/23/23 11/23/23
04:22 10:00
WBC 8.3 11.9 H
Hgb 15.9 16.4
Hct 44.0 46.0
Plt Count 152 142
PT 14.0
INR 1.10
APTT 33.5
Sodium 139 139
Potassium 4.6 5.1
Chloride 106 107
Carbon Dioxide 23 19 L
BUN 16 13
Creatinine 0.7 0.7
Glucose 89 127 H
Calcium 9.0 8.1 L
Vital Signs:
Vital Signs
Temp Pulse Resp BP Pulse Ox
97.7 F 78 18 128/89 93
11/23/23 11:00 11/23/23 12:00 11/23/23 12:00 11/23/23 12:00 11/23/23 12:00
I&O
11/22/23 11/23/23 11/24/23
06:59 06:59 06:59
Intake Total 360 / 360 180 / 180
Output Total 620 / 620
Balance 360 / 360 -440 / -440
Review of Systems
-
History Source: Patient
All other systems: Reviewed and negative
--- NOTE | 2023-11-23 13:05 | PTCARENOTE ---
assumed care of pt from PACU, AAO, LORENA and can make needs known, denies any pain @ B/L groin sites, no edema, + radials and pedals weak on palpation, R radial A-line with BP cuff correlation, color of toes has returned to pink, radha hugger in place
per order on LE, lungs diminished throughout, IS given per order, 16F chino with yellow output, NS @ 80ml, @ bedside, call georges within reach, otherwise refer to documentation
[2023-11-23] MEDS: IMDUR (EXTENDED RELEASE) 30 MG PO (13:25)
[2023-11-23] MEDS: TENORMIN 50 MG PO (13:26)
[2023-11-23] MEDS: LIDOCAINE 4% PATCH 1 PATCH TOPICAL (13:26)
[2023-11-23] MEDS: CARDIZEM CD 120 MG PO (13:28)
[2023-11-23] MEDS: LOW STRENGTH ASPIRIN 81 MG PO (13:28)
[2023-11-23] MEDS: PRAVACHOL 80 MG PO (13:29)
[2023-11-23] MEDS: TYLENOL 650 MG PO ×2 (13:29→17:29)
[2023-11-23] MEDS: PLAVIX 75 MG PO (13:31)
[2023-11-23] MEDS: LOVENOX 40 MG SC (17:23)
[2023-11-23] MEDS: MAXALT MLT (ORALLY DISINTEGRATING) 10 MG PO (22:16)
[2023-11-23] MEDS: MORPHINE SULFATE 1 MG IV (22:21)
[2023-11-23] MEDS: NSS IV (22:23)
[2023-11-24] VITALS (10 sets, daily range): BP systolic 103–141; BP diastolic 59–105
[2023-11-24] MEDS: TYLENOL 650 MG PO (00:31)
[2023-11-24] MEDS: NSS 1000 IV (00:31)
[2023-11-24] MEDS: MAXALT MLT (ORALLY DISINTEGRATING) 10 MG PO (00:32)
[2023-11-24] MEDS: BENADRYL 25 MG PO (01:07)
[2023-11-24 04:16] LABS: Hematocrit 40.8 % (39.0-52.0); Hemoglobin 14.9 g/dL (13.0-18.0); Mean Corp Hgb Conc. 36.5 g/dL (33.0-37.0); Mean Corpuscular Hgb 31.8 pg (27.0-31.0); Mean Platelet Volume 9.6 fL (7.4-10.4); Platelet Count 148 10^3/uL (130-400); Red Blood Cell Count 4.69 10^6/uL (4.70-6.10); White Blood Cell Count 16.3 10^3/uL (4.8-10.8)
--- NOTE | 2023-11-24 04:18 | PTCARENOTE ---
Beatrice positional, unable to flush- B BALDO Hoffmann aware, Beatrice dc'd, pressure held, dsg applied
[2023-11-24 04:27] LABS: INR 1.12; PT 14.2 Sec (11.4-14.6)
[2023-11-24 04:35] LABS: Blood Urea Nitrogen 14 mg/dl (9-20); Calcium 7.1 mg/dl (8.4-10.2); Carbon Dioxide 14 mmol/L (22-30); Chloride 113 mmol/L (98-107); Estimated Creatinine Clearance > 125 ml/min; Glucose 107 mg/dl (70-99); Potassium 3.7 mmol/L (3.5-5.1); Sodium 140 mmol/L (135-145); eGFR > 60.00
--- NOTE | 2023-11-24 07:40 | W.PN.INTV ---
Today's Communication / Plan
Recommendations
Discontinue bicarb drip
Increase activity
Neurovascular checks
Stable for transfer out of ICU-call pulmonary if respiratory issues arise
Outpatient sleep disorders follow-up
Assessment
-
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
for postoperative critical care management 11/23/2023.
AAA status post EVAR 11/23/2023-Dr. Polanco
Mild leukocytosis-WBC 11.9
Mild hyperglycemia
Conditions present prior to admission:
Hypertension.
Hyperlipidemia.
CAD-CABG times 05/2006.
CVA 08/2022.
Obesity.
CADENCE.
Migraines.
Infrarenal AAA.
Former smoker-quit 20 years ago
Plan
Hemodynamically and neurovascularly intact
Wean supplemental oxygen
Incentive spirometry encourage
Aspiration precautions
Monitor hemoglobin
Transfuse if needed
Monitor blood sugars
Insulin supplementation if needed
Neuro and vascular checks per protocol also continue
Vascular surgery closely
DVT prophylaxis recommended
Nutrition
Increase activity/physical therapy
Patient can be transferred out of ICU-call pulmonary if respiratory issues arise
Outpatient sleep disorders [id number] with untreated sleep apnea was reviewed. Treatment options were also reviewed with him at length.
Reviewed the patient's pertinent medical records including radiographs, microbiology, laboratory evaluations, and discussion with primary team, consultants, pharmacy, nutrition, physical therapy, case management, charge nurse, critical care
nursing, and respiratory therapy. Follow-up
Diagnostic data:
Chest x-ray 09/12/2020-hyperaerated lungs without consolidation
CT chest 10/11/2020-no pulmonary embolism, no aortic dissection, cardiomegaly
CT head angiogram 07/06/2021-large amount of calcified atherosclerotic plaque in the cavernous and clinoid segments of both intracranial internal carotid arteries causing 70% max diameter stenosis on the left and 25-50% stenosis on the right,
CT chest abdomen and pelvis 11/21/2023-no thoracic aortic aneurysm or dissection, proximal infrarenal abdominal aortic aneurysm measuring 4.1 cm and distal abdominal aortic aneurysm measuring 4.6 cm, proximal right common iliac artery aneurysm
measuring 1.9 cm, mild fatty infiltration of the liver, mild diverticulosis
Cardiac catheterization 09/11/2020-systemic hypertension, mild anterolateral hypokinesis, EF 53%, severe [place] triple-vessel CAD with patent ROBINS-LAD, OMAR-RPDA, and LRA-OM 3 bypass grafts, unsuccessful attempt PCI of first diagonal branch stenosis
due to guidewire dissection all
HST 10/02/2022-SALAS-13.3, desaturation bertin 84%, 1.6% of time less than 90% saturation
Subjective Dataa
Subjective Data
Date of Service:
Date of Service: November 24, 2023
Chief Complaint: Transition Specialist Follow Up and Pulmonary Follow Up
Subjective:
Slept, Govea out and much relieved, no complaints of shortness of breath, chest pain or abdominal pain
Review of Systems
General: Other (Per HPI)
Objective Data
Data Reviewed
Vital Signs / I&O / Oxygen:
Vital Signs
Temp Pulse Resp BP Pulse Ox
98.0 F 87 19 118/84 94
11/24/23 07:27 11/23/23 17:00 11/23/23 17:00 11/23/23 17:00 11/23/23 17:00
Intake and Output
11/23/23 11/24/23 11/25/23
06:59 06:59 06:59
Intake Total 360 / 360 1999 / 1999
Output Total 2495 / 2495
Balance 360 / 360 -495 / -495
SaO2 94
Nasal Cannula flow liters per 2
minute
Physical Exam
General: Respiratory Distress (n) and Comfortable
HEENT: Normocephalic, Anicteric and Moist Mucous Membranes
Cardiovascular: Regular Rhythm
Respiratory: Wheeze (n), Crackles (n), Rhonchi (n), Non-Labored Respirations, Accessory Resp Muscle Use (n) and Stridor (n)
GI: Soft, Non Distended and Non Tender
Neurology: Awake, Alert and No Motor Deficits
Skin: Warm, Good Color, Cyanosis (n), Jaundice (n) and Rash (n)
Labs/Micro/Reports
Lab Data
11/24/23 03:42
11/24/23 03:42
Laboratory Results
11/24/23
03:42
PT 14.2
INR 1.12
--- NOTE | 2023-11-24 07:51 | W.PN.CD ---
Today's Communication / Plan
-
Cont post-op care
CP free
Impression / Plan
-
Assessment/Plan: 58 y/o male with CAD s/p CABG x 3 2006, CVA 08/2022, obesity, HLD, HTN, migraines, infrarenal abdominal aortic aneurysm and strong family history of early CAD, who presented to the ER with c/o worsened back pain and headaches. CT
abd/pelvis revealed two sites of fusiform infrarenal abdominal aortic aneurysmal dilatation, measuring up to 4.7 cm (previously 3.4 cm on 10/11/2020) and fusiform aneurysmal dilatation of the bilateral common iliac arteries, increased from prior.
AAA s/p EVAR 11/23/23, Dr. Polanco:
-VSS post-op
-post-op management per vascular surgery
CAD - s/p CABG:
- denies chest pain
- continue Pravastatin, Atenolol
- on Plavix as OP and currently also on aspirin.
HTN:
-monitor post-op
CVA - 08/2022:
-on Plavix, statin
Headaches:
-neuro following
Subjective:
No CP feeling well no new complaints
Physical Exam
Vital Signs/Labs
Vital Signs
Temp Pulse Resp BP Pulse Ox
98.0 F 87 19 118/84 94
11/24/23 07:27 11/23/23 17:00 11/23/23 17:00 11/23/23 17:00 11/23/23 17:00
11/24/23 03:42
11/24/23 03:42
PT 14.2 Sec (11.4-14.6) 11/24/23 03:42
INR 1.12 11/24/23 03:42
APTT 33.5 Sec (23.4-35.0) 11/23/23 04:22
Physical Exam
Constitutional: No acute distress and Comfortable
EENT: Anicteric
Cardiovascular: Rhythm & rate is regular and Pedal edema is absent
Respiratory: Respiratory effort normal and Lungs clear to auscul.
GI: Soft
Neuro/Psych: AO x 3
Data Reviewed
-
Date of Service: November 24, 2023
EKG: Tracing Personally Visualized and interpreted (sr)
Echo: Report Reviewed by me
Labs: Labs Reviewed by me
[2023-11-24] MEDS: SODIUM BICARBONATE 1150 MEQ IV (07:54)
[2023-11-24] MEDS: CALCIUM GLUCONATE 100 IV (07:56)
[2023-11-24] MEDS: CARDIZEM CD 120 MG PO (08:02)
[2023-11-24] MEDS: TENORMIN 50 MG PO (08:02)
[2023-11-24] MEDS: PRAVACHOL 80 MG PO (08:03)
[2023-11-24] MEDS: LOW STRENGTH ASPIRIN 81 MG PO (08:03)
[2023-11-24] MEDS: PLAVIX 75 MG PO (08:03)
[2023-11-24] MEDS: IMDUR (EXTENDED RELEASE) 30 MG PO (08:03)
[2023-11-24] MEDS: LIDOCAINE 4% PATCH 1 PATCH TOPICAL (08:03)
--- NOTE | 2023-11-24 08:42 | W.PN.VS ---
Addendum entered and electronically signed by LATOSHA Salazar 11/24/23 12:04:
Correction: from a vascular surgical perspective patient does not have to be on dual antiplatelet therapy, he must discontinue at least 1 antiplatelet medication of either Plavix 75 mg p.o. daily or aspirin 81 mg p.o. daily. If another discipline
is recommending dual antiplatelet therapy we are also okay with this medication management recommendation.
Original Note:
Today's Communication / Plan
-
See below.
Assessment/Plan
-
Assessment: 58-year-old male with abdominal aortic aneurysm POD #1 EVAR
Plan:
Can get out of bed to chair with progression to ambulation as tolerated
Electrolyte abnormalities currently being repleted by decatizer/primary team, appreciate recommendations/management
Continue neurovascular checks
Continue dual antiplatelet therapy of Plavix 75 mg p.o. daily and aspirin 81 mg p.o. daily
Subjective Data
-
Date of Service: November 24, 2023
Patient seen and examined at bedside, offers no complaints. Govea catheter was discontinued yesterday due to patient discomfort, he verbalizes vast improvement to near resolution of penile/groin discomfort and pressure. Denies nausea, vomiting,
fever, and chills. Reports no difficulties with spontaneous urination following catheter removal. Instructed by nursing staff that right radial A-line was not functioning overnight and already removed.
Objective Data
-
Vital Signs
Temp Pulse Resp BP Pulse Ox
98.0 F 87 19 118/84 94
11/24/23 07:27 11/23/23 17:00 11/23/23 17:00 11/23/23 17:00 11/23/23 17:00
Intake and Output
11/23/23 11/24/23 11/25/23
06:59 06:59 06:59
Intake Total 360 / 360 1999 / 1999
Output Total 2495 / 2495
Balance 360 / 360 -495 / -495
Intake:
Oral fluids 780 / 780
IV fluids (Total) 1220 / 1220
NSS 100 / 100
Nss 1,000 ml @ 80 mls/hr IV . 1120 / 1120
[id number] DENNIS Rx#:[id number]
Output:
Urine, Govea 920 / 920
Urine, Voided 1575 / 1575
Other:
Number of approximated MODERATE 1
amounts of urine
Lab Results
11/24/23 03:42
11/24/23 03:42
Calcium 7.1 mg/dl (8.4-10.2) L 11/24/23 03:42
Total Bilirubin 0.9 mg/dl (0.2-1.3) 11/19/23 20:04
AST 31 U/L (17-59) 11/19/23 20:04
ALT 23 U/L (0-50) 11/19/23 20:04
Alkaline Phosphatase 78 U/L (38-126) 11/19/23 20:04
Total Protein 6.8 g/dl (6.3-8.2) 11/19/23 20:04
Albumin 4.1 g/dl (3.5-5.0) 11/19/23 20:04
Physical Exam
-
No apparent distress, resting in bed comfortably
No tachycardia
No dyspnea on room air
Abdomen rotund, nontender, nondistended
Bilateral groin puncture sites CDI, no evidence of hematoma, all surrounding compartments soft, Exofin intact
Right wrist clean dry intact, no evidence of edema/hematoma, radial pulse +1 palpable
Bilateral feet warm, bilateral DP/PT pulses +1 palpable
--- NOTE | 2023-11-24 09:10 | PTCARENOTE ---
Addendum entered by Minnie Medel RN 11/24/23 11:03:
Correction-SR with AVB.
Original Note:
Received pt awake and alert.Speech is appropriate.+5/5 ESTES.OOB to chair with minimal assist.Gait is steady.c/o slight groin discomfort.Declines pain medication at this time.AR with 1st AVB noted.Bicarb gtt infusing.Calcium gluconate repleted as
ordered.Lungs CTA.POX 100% on RA.Awaiting breakfast.No BM.Voiding yellow urine.BL groin puncture wounds ecchymotic without drainage.BL low extremities pink and warm with palpable DP.Plan of care discussed.
--- NOTE | 2023-11-24 09:24 | W.PN.HOSP.TC ---
Addendum entered and electronically signed by Guillermo Butts DO 11/24/23 11:36:
Vascular surgery service okay with discharge today after he ambulates.
Outpatient follow-up.
Original Note:
Today's Communication/Plan
-
Ambulate
Discharge planning
Assessment / Plan
Assessment / Plan
Gen-AAOx3, NAD
HEENT-NC, AT, anicteric, clear oral mm
Neck-supple
CV-reg, no M, +S1/S2
Lungs-clear B/L
Abd-soft, NT, ND
Ext-no edema
Musculoskeletal-no cyanosis, clubbing
Skin-warm and dry
Neuro-grossly non-focal
Psych-calm, cooperative
Infrarenal abdominal aortic aneurysm -underwent successful EVAR 11/22. Diet resumed. Ambulate today. Govea catheter removed.
Iatrogenic nongap metabolic acidosis -due to IV fluid administration. Can discontinue bicarbonate drip. Diet resumed.
Hiccups -start baclofen as needed. Discussed with patient.
Progressive back pain -differential diagnosis includes musculoskeletal pain versus aneurysmal pain versus other causes. Pain improved postoperatively. Monitor for now.
CAD/CABG -stable.
History of stroke
Hyperlipidemia -on pravastatin prior to admission.
Essential HTN -Continue antihypertensive.
Migraine
-Started on triptans. seems to be helping
Morbid obesity due to excess calories
Full code
Dispo -anticipate discharge this afternoon if he remains stable. Will discuss with vascular surgery. Outpatient follow-up.
Anticipated Discharge: Today
Subjective/Interval History
-
Date of Service: November 24, 2023
Patient seen and examined. Improving back pain. Sitting in the chair. No complaints.
Objective Data
-
Labs:
Laboratory Results
11/24/23
03:42
WBC 16.3 H
Hgb 14.9
Hct 40.8
Plt Count 148
PT 14.2
INR 1.12
Sodium 140
Potassium 3.7 D
Chloride 113 H
Carbon Dioxide 14 L*
BUN 14
Creatinine 0.6 L
Glucose 107 H
Calcium 7.1 L
Vital Signs:
Vital Signs
Temp Pulse Resp BP Pulse Ox
98.0 F 60 22 127/105 95
11/24/23 07:27 11/24/23 09:00 11/24/23 09:00 11/24/23 09:00 11/24/23 08:00
I&O
11/23/23 11/24/23 11/25/23
06:59 06:59 06:59
Intake Total 360 / 360 1999 / 2079 580 / 580
Output Total 2495 / 2495 400 / 400
Balance 360 / 360 -495 / -415 180 / 180
Review of Systems
-
History Source: Patient
All other systems: Reviewed and negative
--- NOTE | 2023-11-24 11:37 | W.DS.TRANS ---
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
-
Discharge Instructions:
Discharge Diagnosis/Procedures Abdominal aortic aneurysm
Diet Low Cholesterol,Low Fat
Activity As tolerated
Driving Restrictions As prior to admission
Bathing Restrictions None
Instructions:
Stand-Alone Forms:
Changes to Home Medications: No
Discharge Medications:
DC Medications w/original date entered in [employer]
pravastatin 80 mg tablet 80 mg PO DAILY High cholesterol 08/20/13
diltiazem HCl 120 mg capsule,extended release 24 hr 120 mg PO DAILY Heart disease/condition 11/29/19
isosorbide mononitrate 30 mg tablet,extended release 24 hr 30 mg PO DAILY #30 tabs 09/12/20
clopidogrel 75 mg tablet (Plavix) 75 mg PO DAILY Blood Clot Prevention/Tx 09/22/22
nitroglycerin 0.3 mg sublingual tablet 0.3 mg sublingual [id number] PRN chest pressure 09/22/22
atenolol 50 mg tablet 50 mg PO DAILY Blood Pressure 11/19/23
aspirin 81 mg chewable tablet 81 mg PO DAILY #30 tabs 11/24/23
baclofen 5 mg tablet 5 mg PO TID PRN hiccups #15 tabs 11/24/23
rizatriptan 10 mg disintegrating tablet 10 mg PO ONCE PRN headache #20 tabs 11/24/23
Home Medication Changes
Pending Results: No
--- NOTE | 2023-11-24 12:48 | W.DS.TRANS ---
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
-
Discharge Instructions:
Discharge Diagnosis/Procedures Abdominal aortic aneurysm
Diet Low Cholesterol,Low Fat
Activity As tolerated
Driving Restrictions No driving for 1 week
Bathing Restrictions OK to Shower
Instructions:
Stand-Alone Forms: DC Instr - Vascular OR
Changes to Home Medications: No
Discharge Medications:
DC Medications w/original date entered in [employer]
pravastatin 80 mg tablet 80 mg PO DAILY High cholesterol 08/20/13
diltiazem HCl 120 mg capsule,extended release 24 hr 120 mg PO DAILY Heart disease/condition 11/29/19
isosorbide mononitrate 30 mg tablet,extended release 24 hr 30 mg PO DAILY #30 tabs 09/12/20
clopidogrel 75 mg tablet (Plavix) 75 mg PO DAILY Blood Clot Prevention/Tx 09/22/22
nitroglycerin 0.3 mg sublingual tablet 0.3 mg sublingual [id number] PRN chest pressure 09/22/22
atenolol 50 mg tablet 50 mg PO DAILY Blood Pressure 11/19/23
baclofen 5 mg tablet 5 mg PO TID PRN hiccups #15 tabs 11/24/23
rizatriptan 10 mg disintegrating tablet 10 mg PO ONCE PRN headache #20 tabs 11/24/23
Home Medication Changes
Pending Results: No
--- NOTE | 2023-11-24 12:56 | PTCARENOTE ---
Initial discharge instruction written by Dr Massey.Updated discharge instruction written by Concepción Umanzor and printed out and given to patient.
--- NOTE | 2023-11-24 13:05 | PTCARENOTE ---
Pt will not be taking Aspirin as a discharge medication as per MD order.This was discussed with pt and he verbally stated this.Updated medication discharge instructions printed and given to pt.
--- NOTE | 2023-11-24 13:11 | CM ---
Cm reviewed medical records. Plan for discharge to home. No needs noted.
PLAN: Home no needs.
== END 2023-11-24 13:18 | disposition home or self-care (01) | DRG 269 ==
LOC: ICU 11:44
PROVIDERS: Nurse Practitioner; ADMITTING PHYSICIAN Internal Medicine; ATTENDING PHYSICIAN Hospitalist; CONSULT PHYSICIAN Internal Medicine Cardiovascular Disease; CONSULT PHYSICIAN Internal Medicine Critical Care Medicine; CONSULT PHYSICIAN Psychiatry & Neurology Neurology; EMERGENCY PHYSICIAN Emergency Medicine; FAMILY PHYSICIAN Internal Medicine; OTHER PHYSICIAN Surgery Vascular Surgery
PROC: 04V03DZ Restriction of Abdominal Aorta with Intraluminal Device, Percutaneous Approach (ICD-10-PCS; 2023-11-23)
DX: I71.43 Infrarenal abdominal aortic aneurysm, without rupture (principal); Z87.891 Personal history of nicotine dependence; I10 Essential (primary) hypertension; E66.9 Obesity, unspecified; Z68.39 Body mass index [BMI] 39.0-39.9, adult; G47.33 Obstructive sleep apnea (adult) (pediatric); I25.10 Atherosclerotic heart disease of native coronary artery without angina pectoris; Z79.02 Long term (current) use of antithrombotics/antiplatelets; Z79.82 Long term (current) use of aspirin; Z86.73 Personal history of transient ischemic attack (TIA), and cerebral infarction without residual deficits; Z95.1 Presence of aortocoronary bypass graft
CPT/HCPCS: 34705; 34713; 71275; 74174; 74177; 80048; 80053; 83690; 85025; 85027; 85610; 85730; 86850; 86900; 86901; 93005; 93925; 99285; C1725; C1760; C1769; C1892; C1894; Q9967

== ENCOUNTER → 2023-12-21 14:25 | Outpatient (REF) | payer BC, SELFPAY | LOC: HWRAD 14:25 | PROVIDERS: ATTENDING PHYSICIAN Registered Nurse; FAMILY PHYSICIAN Internal Medicine | DX: I71.40 Abdominal aortic aneurysm, without rupture, unspecified (principal) | CPT/HCPCS: 74174; Q9967 ==

== ENCOUNTER → 2024-02-09 16:56 | Outpatient (REF) | payer BC, SELFPAY | LOC: PAVMRI 16:56 | PROVIDERS: ATTENDING PHYSICIAN Internal Medicine | DX: G43.109 Migraine with aura, not intractable, without status migrainosus (principal) | CPT/HCPCS: 70544; 70547 ==

== ENCOUNTER → 2024-02-29 07:08 | Outpatient (REF) | payer BC, SELFPAY | LOC: RAD 07:08 | PROVIDERS: ATTENDING PHYSICIAN Internal Medicine | DX: I65.21 Occlusion and stenosis of right carotid artery (principal) | CPT/HCPCS: 93880 ==

== ENCOUNTER → 2024-04-07 08:28 | Outpatient (REF) | payer BC, SELFPAY | LOC: RAD 08:28 | PROVIDERS: ATTENDING PHYSICIAN Internal Medicine | DX: I65.21 Occlusion and stenosis of right carotid artery (principal) | CPT/HCPCS: 93880 ==

== ENCOUNTER 2024-05-19 15:45 | Emergency (ER) | payer BC, SELFPAY ==
[2024-05-19 15:55] VITALS: BP 130/95
[2024-05-19 16:18] VITALS: BP 102/70
[2024-05-19 16:36] VITALS: BMI 42.9
[2024-05-19 16:46] LABS: % Basophils 0.3 % (0-2); % Immature Granulocytes 0.6 % (0-0.5); % Neutrophils 64.1 % (42.2-75.2); Absolute Eosinophils 0.1 10^3/uL (0-0.7); Absolute Lymphocytes 1.6 10^3/uL (1.2-3.4); Absolute Monocytes 0.7 10^3/uL (0.1-0.6); Absolute Neutrophils 4.3 10^3/uL (1.4-6.5); Hematocrit 44.1 % (39.0-52.0); Hemoglobin 15.6 g/dL (13.0-18.0); Mean Corp Hgb Conc. 35.4 g/dL (33.0-37.0); Mean Corpuscular Hgb 32.1 pg (27.0-31.0); Mean Corpuscular Volume 90.7 fL (80.0-94.0); Mean Platelet Volume 9.5 fL (7.4-10.4); Nucleated Red Blood Cells % 0 % (-); Platelet Count 158 10^3/uL (130-400); Red Blood Cell Count 4.86 10^6/uL (4.70-6.10); Red Cell Dist. Width 12.5 % (11.5-14.5); White Blood Cell Count 6.7 10^3/uL (4.8-10.8)
[2024-05-19 16:53] LABS: ALT (SGPT) 29 U/L (0-50); AST (SGOT) 28 U/L (17-59); Albumin 4.4 g/dl (3.5-5.0); Alkaline Phosphatase 94 U/L (38-126); Blood Urea Nitrogen 19 mg/dl (9-20); Calcium 9.1 mg/dl (8.4-10.2); Carbon Dioxide 29 mmol/L (22-30); Chloride 102 mmol/L (98-107); Estimated Creatinine Clearance 94 ml/min; Glucose 113 mg/dl (70-99); Potassium 4.2 mmol/L (3.5-5.1); Sodium 140 mmol/L (135-145); Total Protein 7.2 g/dl (6.3-8.2); eGFR > 60.00
[2024-05-19 17:01] VITALS: BP 137/87
[2024-05-19 18:00] VITALS: BP 137/78
--- NOTE | 2024-05-19 18:19 | ED.GENMED ---
History of Present Illness
General
Chief Complaint: Back Pain
Time Seen by Provider: 05/19/24 17:57
History of Present Illness
History of Present Illness:
Patient is a 58-year-old male with past medical history of abdominal aortic aneurysm, hyperlipidemia, CAD, and history of chronic back pain, here today for evaluation of approximately 3 days of atraumatic middle to lower back pain. Pain is
primarily along the right lower thoracic/upper lumbar region but at times radiates along the midline. There is no radiation of pain into the lower extremities. No lower extremity weakness. No numbness or tingling. No focal weakness. No saddle
numbness. No history of active cancer. No history of IV drug use noted. No prior spinal surgeries. Patient has been taking aspirin with only mild relief. He denies chest pain or difficulty breathing. No abdominal pain. No vomiting. Pain is
worse with movement and improved with rest.
Of note, the patient was recently seen in the emergency department in November 2023 for back pain and concern for enlarging AAA. He was ultimately admitted and vascular surgery was consulted who recommended endovascular aortic aneurysm resection
which patient underwent on 11/23/2023. Patient has had no complications since surgical repair.
Past History
Past History
ED Past Medical History: CAD, HTN, Hypercholesterolemia and Other (AAA, intractable daily headache)
ED Past Surgical History: Cardiac (CABG 2006)
Social History
Tobacco: Former smoker
Alcohol: None
Drug: None
Personal:
Living: with family
Employment: Employed
Family History
Family History: Early CAD
Review of Systems
Review of Systems
All Other Systems: ROS reviewed and negative except as documented in HPI and ROS
Phy Exam
Physical Exam
Physical Exam:
GENERAL: Alert , in no apparent distress
EYE: pupils equal and reactive
NECK: Supple, no significant adenopathy.
ENT: o/p clr, mmm.
CARDIAC: Regular rate and rhythm .
LUNGS: Clear breath sounds bilaterally, no acute respiratory distress, no wheezes/rales/rhonchi
ABDOMEN: Soft, without focal tenderness, no r/g, no cvat
NEUROLOGICAL: Alert and oriented, no focal neuro deficits
SKIN: Warm and dry, skin intact.
MUSCULOSKELETAL: No edema, well perfused. No tenderness including along the midline. No edema. No rashes. No ecchymosis. No swelling. No overlying skin changes. Normal strength/motor/sensation in the lower extremities.
PSYCH: Normal and appropriate interaction.
Course
Orders/Labs/Results
Orders:
Orders
05/19/24 15:59
Electrocardiogram (*1) Urgent
Reason for Study: Other
Other Reason for Exam: back pain hx AAA
EKG- Treatment ONCE
05/19/24 16:23
CMP [Comprehensive Metabolic Panel] Urgent
Complete Blood Count/With Diff Urgent
05/19/24 18:24
Acetaminophen [Tylenol] 1,000 mg PO NOW STA
Cyclobenzaprine HCl [Flexeril] 10 mg PO NOW STA
Ketorolac [Toradol] 15 mg IV NOW STA
Lumbar Spine, 2 or 3 View [CR Lumbar Spine 2 Or 3 Views] Urgent
Comment:
Reason For Exam: back pain
Thoracic Spine 3 Views CR [CR Thoracic Spine 3 Views] Urgent
Comment:
Reason For Exam: back pain
05/19/24 18:25
Lidocaine [Lidocaine 4% Patch] 1 patch TOPICAL ONCE ONE
Apply Lidocaine patch(s) to:: middle right back
05/19/24 18:31
CT Abd/pelvis W Iv Cont Urgent
Comment:
Reason For Exam: back pain, hx of aaa
05/19/24 18:48
Urinalysis Reflex To Culture Urgent
Date Specimen was Collected: 05/19/24
Time Specimen was Collected: 18:51
05/19/24 20:27
Ketorolac [Toradol] 15 mg IV NOW STA
05/19/24 20:39
Ketorolac [Toradol] 15 mg IM NOW STA
Abnormal Lab Results
05/19/24
16:23
MCH 32.1 H pg
(27.0-31.0)
Absolute Monos (auto) 0.7 H 10^3/uL
(0.1-0.6)
Immature Gran % 0.6 H %
(0-0.5)
Monocytes % 11.0 H %
(1.7-9.3)
Glucose 113 H mg/dl
(70-99)
05/19/24 16:23
05/19/24 16:23
Vital Signs
Initial and Last Documented VS:
Initial Vital Signs
Temp Pulse Resp BP Pulse Ox
98.4 F 57 16 130/95 97
05/19/24 15:55 05/19/24 15:55 05/19/24 15:55 05/19/24 15:55 05/19/24 15:55
Last Documented Vital Signs
Temp Pulse Resp BP Pulse Ox
98.4 F 55 15 143/75 96
05/19/24 15:55 05/19/24 19:15 05/19/24 19:15 05/19/24 19:00 05/19/24 19:15
MDM/Problems Addressed
Differential Diagnosis Includes:
Patient is a 58-year-old male with past medical history of abdominal aortic aneurysm, hyperlipidemia, CAD, and history of chronic back pain, here today for evaluation of approximately 3 days of atraumatic middle to lower back pain. Overall, patient
appears very well. Vital signs remarkable for a mildly elevated blood pressure. Physical examination described above. On examination, I am not able to appreciate any acute abnormalities. The patient is neurologically intact. There is no
radiation of pain into the abdomen. No chest pain or difficulty breathing. Do not suspect aortic syndrome. No findings to suggest CAD. Patient well-appearing overall. We will begin with a thoracic and lumbar spine x-ray. Out of an abundance of
caution we will also obtain a CT scan of the abdomen and pelvis with IV contrast to assess the patient's aortic status. Will provide cyclobenzaprine for muscle relaxation, topical lidocaine patches, and PO Tylenol. Will closely monitor and
reassess.
ED Attending Note
-
Portions of this chart may have been created with voice recognition software.� Occasional wrong word or��sound alike� substitutions may have occurred due to the inherent limitations of voice recognition software.
Discharge Plan
Departure
Patient Disposition: Home (Routine Discharge)
Date of Disposition: 05/19/24
Time of Disposition: 20:47
Patient with high blood pressure during this ER visit?: Yes
Condition: Fair
Discharge Problem:
Acute back pain
Instructions: Back Pain
Prescriptions:
New
cyclobenzaprine 5 mg tablet
5 mg PO TID PRN (Reason: muscle spasm) 5 Days Qty: 15 0RF
Rx Instructions:
May cause drowsiness. No driving or drinking alcohol.
No Action
pravastatin 80 MG tablet
80 mg PO DAILY
diltiazem HCl 120 MG capsule,extended release 24hr
120 mg PO DAILY
isosorbide mononitrate 30 MG tablet extended release 24 hr
30 mg PO DAILY Qty: 30 5RF
nitroglycerin 0.3 mg Tablet, Sublingual
0.3 mg SUBLINGUAL [id number] PRN (Reason: chest pressure)
clopidogrel [Plavix] 75 mg Tablet
75 mg PO DAILY
atenolol 50 mg Tablet
50 mg PO DAILY
baclofen 5 mg Tablet
5 mg PO TID PRN (Reason: hiccups) Qty: 15 0RF
rizatriptan 10 mg Tablet,Disintegrating
10 mg PO ONCE PRN (Reason: headache) Qty: 20 0RF
Referrals:
Yo Bentley MD [Active] - Follow up in 10 days
Julius Sotelo MD [Family Provider] -
Activity Restrictions/Additional Instructions:
You were seen today for evaluation of back pain.
We obtained blood work which reveals no significant gross abnormalities.
We obtained a CAT scan of your abdomen and pelvis which reveals the following:
1. Severe diffuse hepatic steatosis.
2. Mild hepatosplenomegaly.
3. Aortobiiliac endograft in place without definitive interval change in size of the benton aneurysm sac compared with the prior examination performed 12/21/2023.
4. Moderate scarring in the posterior cortex of the lower pole of the left kidney.
5. Moderate diverticulosis throughout the descending colon.
6. Mildly enlarged prostate gland.
7. Severe discogenic degenerative disease at L5/S1.
8. Moderate discogenic degenerative disease and moderate central canal stenosis at L4/L5.
Please follow-up with the orthopedic specialists as an outpatient within the next 7 to 10 days for close reevaluation.
Return for any new, worsening, or concerning symptoms.
Interventions
Interventions:
*Risk Screen - Suicide Last Done: 05/19/24 15:55
*General Assessment Last Done: 05/19/24 16:36
*Neglect/Abuse Screening Last Done: 05/19/24 16:36
*ED- Fall Risk Assessment Last Done: 05/19/24 16:36
*ED COVID-19 Vaccine History Last Done: 05/19/24 16:36
ED-Musculoskeletal Assessment Last Done: 05/19/24 16:36
Discharge Date and Time
Print Language: PANAMANIAN
[2024-05-19] MEDS: LIDOCAINE 4% PATCH 1 PATCH TOPICAL (18:51)
[2024-05-19] MEDS: FLEXERIL 10 MG PO (18:52)
[2024-05-19] MEDS: TYLENOL 1000 MG PO (18:52)
[2024-05-19 19:00] VITALS: BP 143/75
[2024-05-19] MEDS: TORADOL 15 MG IM (20:50)
== END 2024-05-19 21:15 | disposition home or self-care (01) ==
LOC: EMR 15:45
PROVIDERS: EMERGENCY PHYSICIAN Student in an Organized Health Care Education/Training Program; FAMILY PHYSICIAN Internal Medicine
DX: M54.6 Pain in thoracic spine (principal); M54.50 Low back pain, unspecified; G89.29 Other chronic pain; I25.10 Atherosclerotic heart disease of native coronary artery without angina pectoris; I10 Essential (primary) hypertension; E78.00 Pure hypercholesterolemia, unspecified; Z86.79 Personal history of other diseases of the circulatory system; Z95.1 Presence of aortocoronary bypass graft; Z87.891 Personal history of nicotine dependence
CPT/HCPCS: 99284; 96372; 72072; 72100; 74177; 80053; 85025; 93005; Q9967

== ENCOUNTER → 2024-06-01 06:39 | Outpatient (REF) | payer BC, SELFPAY | LOC: PAVMRI 06:39 | PROVIDERS: ATTENDING PHYSICIAN Specialist; FAMILY PHYSICIAN Internal Medicine; REFERRING PHYSICIAN Internal Medicine Cardiovascular Disease | DX: G44.86 Cervicogenic headache (principal) | CPT/HCPCS: 72141 ==

== ENCOUNTER → 2024-07-01 10:47 | Outpatient (REF) | payer BC, SELFPAY | LOC: HWRCS 10:47 | PROVIDERS: ATTENDING PHYSICIAN Internal Medicine; REFERRING PHYSICIAN Internal Medicine Cardiovascular Disease | DX: M54.6 Pain in thoracic spine (principal); M54.50 Low back pain, unspecified | CPT/HCPCS: 78452; 93017; A9500; J2785 ==

== ENCOUNTER → 2024-07-21 06:18 | Outpatient (REF) | payer BC, SELFPAY | LOC: RAD 06:18 | PROVIDERS: ATTENDING PHYSICIAN Surgery Vascular Surgery; FAMILY PHYSICIAN Internal Medicine | DX: I71.40 Abdominal aortic aneurysm, without rupture, unspecified (principal) | CPT/HCPCS: 76770 ==

== ENCOUNTER → 2024-08-28 10:11 | Outpatient (REF) | payer BC, SELFPAY | LOC: PAVMRI 10:11 | PROVIDERS: ATTENDING PHYSICIAN Internal Medicine | DX: M54.6 Pain in thoracic spine (principal) | CPT/HCPCS: 72146 ==

== ENCOUNTER → 2024-12-15 08:58 | Outpatient (REF) | payer BC, SELFPAY | LOC: RAD 08:58 | PROVIDERS: ATTENDING PHYSICIAN Registered Nurse; FAMILY PHYSICIAN Internal Medicine | DX: I71.40 Abdominal aortic aneurysm, without rupture, unspecified (principal) | CPT/HCPCS: 74174; Q9967 ==

== ENCOUNTER 2025-01-20 06:20 | Day surgery (SDC) | payer BC, OTHER, SELFPAY ==
[2025-01-20 06:53] VITALS: BP 167/93
[2025-01-20 07:02] VITALS: BMI 41.8
[2025-01-20 08:45] VITALS: BP 119/83
[2025-01-20 08:46] VITALS: BP 119/83
[2025-01-20 08:49] VITALS: BP 119/83
[2025-01-20 09:01] VITALS: BP 124/84
--- NOTE | 2025-01-20 11:51 | ITS.CL.IMPLP ---
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
Implant Loop
Procedure Report:
Date of Procedure: January 20, 2025.
Procedure: Insertable Loop Recorder Explant.
Indication: Loop at the end of service.
Performing physician: Ilan Shannon MD, [facility].
Explant: Ramu STRANGE; Model: [id number] Serial# [id number] (implanted 09/22/2022).
Technique: A time out was performed per protocol. The patient was prepped and draped in the usual fashion. Anesthesia was administered by the anesthesia staff. The device was barely palpable. Fluoroscopy was used to confirm device location. Local
anesthetic was applied to the left prepectoral subcutaneous tissue. An incision was made over the superior aspect of the device. Dissection was carried to the device. The old device was explanted. The pocket appeared normal. Hemostasis was
excellent. The pocket was irrigated saline. The incision was closed with 4-0 Monocryl suture. The skin was closed with steri-strips. The estimated blood loss was less than 1 mL. There were no complications. Fluoroscopy time 0.1 minutes and DAP 0.252
Gycm2.
Conclusion: Uncomplicated insertable loop explantation.
Recommendation: Routine incision care.
cc: Howie Elena DO and Julius Sotelo MD.
== END 2025-01-20 09:22 | disposition home or self-care (01) ==
LOC: CATH 06:20
PROVIDERS: ATTENDING PHYSICIAN Internal Medicine Cardiovascular Disease; FAMILY PHYSICIAN Internal Medicine; OTHER PHYSICIAN Internal Medicine Cardiovascular Disease
DX: Z09 Encounter for follow-up examination after completed treatment for conditions other than malignant neoplasm (principal); Z79.82 Long term (current) use of aspirin; Z79.02 Long term (current) use of antithrombotics/antiplatelets; I10 Essential (primary) hypertension; Z95.1 Presence of aortocoronary bypass graft; I25.10 Atherosclerotic heart disease of native coronary artery without angina pectoris
CPT/HCPCS: 33286

== ENCOUNTER → 2025-01-27 09:08 | Outpatient (REF) | payer BC, OTHER, SELFPAY | LOC: HWRCS 09:08 | PROVIDERS: ATTENDING PHYSICIAN Internal Medicine Cardiovascular Disease; FAMILY PHYSICIAN Internal Medicine | DX: I25.10 Atherosclerotic heart disease of native coronary artery without angina pectoris (principal); Z95.1 Presence of aortocoronary bypass graft; Z86.73 Personal history of transient ischemic attack (TIA), and cerebral infarction without residual deficits; R60.0 Localized edema | CPT/HCPCS: 93306 ==